=== PATIENT | female | born 1990 | race Caucasian/White ===

== ENCOUNTER 2019-07-31 07:23 | Emergency (ER) | payer SELFPAY ==
[2019-07-31] MEDS ORDERED: KETOROLAC 30 MG/ML INJ ONE (08:07)
[2019-07-31 08:20] LABS: Urine Bacteria 20-50 /HPF (<20); Urine RBC NONE SEEN /HPF (NONE SEEN)
[2019-07-31 08:21] LABS: Urine Culture Reflex Order NOT NEEDED
[2019-07-31 08:22] LABS: Absolute Lymphocytes (CBC) 2.4 K/uL (0.7-4.9); Basophils % 0.8 % (0-1.3); Lymphocytes % 25.8 % (15.3-44.8); MPV 9.8 fL (7.6-11.3); RBC Red Blood Cell Count 3.82 M/uL (3.86-4.86)
[2019-07-31 08:39] LABS: Urine Blood NEGATIVE (NEG); Urine Glucose NEGATIVE (NEG); Urine Protein NEGATIVE (NEG); Urine Specific Gravity 1.015 (1.005-1.030)
[2019-07-31 08:40] LABS: Albumin 3.6 g/dL (3.4-5.0); Bilirubin Direct 0.1 mg/dL (0-0.2); Bilirubin Total 0.6 mg/dL (0.2-1.0); Potassium 3.6 mmol/L (3.5-5.1); Protein, Total 7.2 g/dL (6.4-8.2)
--- NOTE | 2019-07-31 09:03 | EDPHYS ---
Physician Documentation [facility] Name: Perla De Jesus Age: 28 yrs Sex: Female : 1990 Arrival Date: 07/31/2019 Time: 07:26 Bed 14 Private MD: ED Physician Gabriel Ferguson HPI: 07/31 08:48 This 28 yrs old Female presents to ER via Ambulatory with complaints of gs Abdominal Pain, Back Pain. 08:48 The patient presents with abdominal pain. The patient presents with abdominal pain in gs the lower abdomen. Onset: The symptoms/episode began/occurred 4 day(s) ago. Associated signs and symptoms: Pertinent positives: nausea, Pertinent negatives: fever. The symptoms are described as crampy. Modifying factors: The symptoms are alleviated by nothing, the symptoms are aggravated by nothing. Severity of pain: At its worst the pain was moderate in the emergency department the pain has improved mildly. The patient has experienced similar episodes in the past, a few times. 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 - Social history:: Smoking status: Patient/guardian denies using tobacco. - Ebola Screening: : Patient denies exposure to infectious person Patient denies travel to an Ebola-affected area in the 21 days before illness onset. ROS: 08:48 All other systems are negative. gs Exam: 08:48 Head/Face: Normocephalic, atraumatic. Eyes: Pupils equal round and reactive to light, gs extra-ocular motions intact. Lids and lashes normal. Conjunctiva and sclera are non-icteric and not injected. Cornea within normal limits. Periorbital areas with no swelling, redness, or edema. ENT: Nares patent. No nasal discharge, no septal abnormalities noted. Tympanic membranes are normal and external auditory canals are clear. Oropharynx with no redness, swelling, or masses, exudates, or evidence of obstruction, uvula midline. Mucous membranes moist. Neck: Trachea midline, no thyromegaly or masses palpated, and no cervical lymphadenopathy. Supple, full range of motion without nuchal rigidity, or vertebral point tenderness. No Meningismus. Chest/axilla: Normal chest wall appearance and motion. Nontender with no deformity. No lesions are appreciated. Cardiovascular: Regular rate and rhythm with a normal S1 and S2. No gallops, murmurs, or rubs. Normal PMI, no JVD. No pulse deficits. Respiratory: Lungs have equal breath sounds bilaterally, clear to auscultation and percussion. No rales, rhonchi or wheezes noted. No increased work of breathing, no retractions or nasal flaring. Back: No spinal tenderness. No costovertebral tenderness. Full range of motion. Skin: Warm, dry with normal turgor. Normal color with no rashes, no lesions, and no evidence of cellulitis. MS/ Extremity: Pulses equal, no cyanosis. Neurovascular intact. Full, normal range of motion. Neuro: Awake and alert, GCS 15, oriented to person, place, time, and situation. Cranial nerves II-XII grossly intact. Motor strength 5/5 in all extremities. Sensory grossly intact. Cerebellar exam normal. Normal gait. 08:48 Constitutional: The patient appears alert, awake. 08:48 Abdomen/GI: Palpation: mild abdominal tenderness, in the umbilical area, right lower quadrant and left lower quadrant. Vital Signs: 07:40 BP 137 / 98; Pulse 60; Resp 14; Temp 97.8(TE); Pulse Ox 100% on R/A; Weight 77.11 kg; ss Height 5 ft. 3 in. (160.02 cm); Pain 6/10; 08:38 BP 131 / 96; Pulse 50; Resp 16; Pulse Ox 99% on R/A; Pain 4/10; rb1 09:18 BP 138 / 97; Pulse 55; Resp 15; Temp 98.1(O); Pulse Ox 99% on R/A; Pain 3/10; rb1 07:40 Body Mass Index 30.11 (77.11 kg, 160.02 cm) ss MDM: 07:52 Patient medically screened. gs 08:48 Differential diagnosis: non-specific abd pain, pancreatitis, urinary tract infection. gs Data reviewed: vital signs, nurses notes. Counseling: I had a detailed discussion with the patient and/or guardian regarding: the historical points, exam findings, and any diagnostic results supporting the discharge/admit diagnosis, the need for outpatient follow up. Response to treatment: the patient's symptoms have markedly improved after treatment, and as a result, I will discharge patient. 07/31 07:36 Order name: Urine Microscopic Only; Complete Time: 08:48 07/31 07:50 Order name: Urine Culture rb1 07/31 07:52 Order name: Basic Metabolic Panel; Complete Time: 08:48 07/31 07:52 Order name: CBC with Diff; Complete Time: 08:48 gs 07/31 07:52 Order name: Hepatic Function; Complete Time: 08:48 gs 07/31 07:52 Order name: Lipase; Complete Time: 08:48 07/31 07:36 Order name: Urine Test (obtain specimen); Complete Time: 07:50 gs 07/31 07:36 Order name: Urine Dipstick-Ancillary (obtain specimen); Complete Time: 07:50 07/31 07:52 Order name: IV Saline Lock; Complete Time: 08:15 07/31 07:52 Order name: Labs collected and sent; Complete Time: 08:16 gs 07/31 07:53 Order name: Urine Dipstick--Ancillary (enter results); Complete Time: 08:48 eb 07/31 07:53 Order name: Urine --Ancillary (enter results); Complete Time: 08:48 eb Administered Medications: 08:19 Drug: TORadol - Ketorolac 15 mg Route: IVP; Site: right antecubital; rb1 08:34 Follow up: Response: No adverse reaction; Pain is decreased rb1 Disposition: 07/31/19 09:02 Discharged to Home. Impression: Urinary tract infection, site not specified. - Condition is Stable. - Discharge Instructions: Urinary Tract Infection, Adult. - Prescriptions for Keflex 500 mg Oral Capsule - take 1 capsule by ORAL route every 12 hours for 10 days; 20 capsule. - Medication Reconciliation Form, Thank You Letter, Antibiotic Education, Prescription Opioid Use form. - Follow up: Private Physician; When: 2 - 3 days; Reason: Re-evaluation by your physician. Signatures: Dispatcher [facility] Arelis Phelan RN RN ss Barber, Rebecca, RN RN rb1 Gabriel Ferguson MD MD Corrections: (The following items were deleted from the chart) :20 09:02 07/31/2019 09:02 Discharged to Home. Impression: Urinary tract infection, site rb1 not specified. Condition is Stable. Forms are Medication Reconciliation Form, Thank You Letter, Antibiotic Education, Prescription Opioid Use. Follow up: Private Physician; When: 2 - 3 days; Reason: Re-evaluation by your physician. gs
--- NOTE | 2019-07-31 09:03 | ER ---
Nurse's Notes [facility] Name: Perla De Jesus Age: 28 yrs Sex: Female : 1990 Arrival Date: 07/31/2019 Time: 07:26 Bed 14 Private MD: Diagnosis: Urinary tract infection, site not specified Presentation: 07/31 07:41 Presenting complaint: Patient states: umbilical soreness x months, now lower abd pain ss and back pain with nausea x 4 days. Denies fever. Transition of care: patient was not received from another setting of care. Onset of symptoms is unknown. Risk Assessment: Do you want to hurt yourself or someone else? Patient reports no desire to harm self or others. Initial Sepsis Screen: Does the patient meet any 2 criteria? No. Patient's initial sepsis screen is negative. Does the patient have a suspected source of infection? No. Patient's initial sepsis screen is negative. Care prior to arrival: None. 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 - Social history:: Smoking status: Patient/guardian denies using tobacco. - Ebola Screening: : Patient denies exposure to infectious person Patient denies travel to an Ebola-affected area in the 21 days before illness onset. Screenin:30 Abuse screen: Denies threats or abuse. Nutritional screening: No deficits noted. rb1 Tuberculosis screening: No symptoms or risk factors identified. Fall Risk None identified. Assessment: 07:30 General: Appears in no apparent distress. comfortable, Behavior is calm, cooperative, rb1 Denies fever. Pain: Complains of pain in suprapubic area Pain currently is 5 out of 10 on a pain scale. Neuro: Level of Consciousness is awake, alert, obeys commands, Oriented to person, place, time, situation. Cardiovascular: Capillary refill < 3 seconds is brisk in bilateral fingers. Respiratory: Airway is patent Respiratory effort is even, unlabored, Respiratory pattern is regular, symmetrical. GI: Bowel sounds present X 4 quads. Abd is soft Reports nausea. : No signs and/or symptoms were reported regarding the genitourinary system. Derm: Skin is pink, warm \\T\\ dry. 08:30 Reassessment: Patient appears in no apparent distress at this time. Patient and/or rb1 family updated on plan of care and expected duration. Pain level reassessed. Patient is alert, oriented x 3, equal unlabored respirations, skin warm/dry/pink. 09:19 Reassessment: Patient appears in no apparent distress at this time. No changes from rb1 previously documented assessment. Vital Signs: 07:40 BP 137 / 98; Pulse 60; Resp 14; Temp 97.8(TE); Pulse Ox 100% on R/A; Weight 77.11 kg; ss Height 5 ft. 3 in. (160.02 cm); Pain 6/10; 08:38 BP 131 / 96; Pulse 50; Resp 16; Pulse Ox 99% on R/A; Pain 4/10; rb1 09:18 BP 138 / 97; Pulse 55; Resp 15; Temp 98.1(O); Pulse Ox 99% on R/A; Pain 3/10; rb1 07:40 Body Mass Index 30.11 (77.11 kg, 160.02 cm) ED Course: 07:26 Patient arrived in ED. as 07:30 Patient has correct armband on for positive identification. Bed in low position. Call rb1 light in reach. Pulse ox on. NIBP on. 07:33 Gabriel Ferguson MD is Attending Physician. gs 07:39 Arelis Wu, RN is Primary Nurse. ss 07:40 Gosia Catalan, RN is Primary Nurse. rb1 07:40 Arm band placed on right wrist. ss 07:42 Triage completed. ss 08:11 Initial lab(s) drawn, by me, sent to lab. Inserted saline lock: 20 gauge in right dh3 antecubital area, using aseptic technique. Blood collected. 09:19 No provider procedures requiring assistance completed. IV discontinued, intact, rb1 bleeding controlled, No redness/swelling at site. Pressure dressing applied. Administered Medications: 08:19 Drug: TORadol - Ketorolac 15 mg Route: IVP; Site: right antecubital; rb1 08:34 Follow up: Response: No adverse reaction; Pain is decreased rb1 Outcome: 09:02 Discharge ordered by . 09:19 Discharged to home ambulatory, with significant other. rb1 09:19 Condition: stable 09:19 Discharge instructions given to patient, Instructed on discharge instructions, follow up and referral plans. medication usage, Demonstrated understanding of instructions, follow-up care, medications, Prescriptions given X 1. 09:20 Patient left the ED. rb1 Signatures: Bertha Shabazz Shelby, RN RN Gosia Catalan RN RN [facility] Gabriel Ferguson MD MD
[2019-07-31 09:39] VITALS: O2SAT 99
[2019-07-31 09:41] VITALS: BP 138/97; TEMP 98.1
== END 2019-07-31 09:20 | disposition home or self-care (01) ==
LOC: ER 07:23
DX: N39.0 Urinary tract infection, site not specified (principal)
CPT/HCPCS: 36415; 80048; 80076; 81003; 81015; 81025; 83690; 85025; 87086; 87088; 96374; 99284

== ENCOUNTER 2020-12-06 19:34 | Emergency (ER) | payer BC, SELFPAY ==
--- OUTSIDE RECORDS SUMMARY | 2020-12-06 19:38 | XMS REPORT | Clinical Summary ---
:1990 Author Organization [facility] Address [address] [place] [address] Care Team Providers Name Role Phone Chata Primary Care Provider PcpMD Primary Care Provider Unavailable PcpMD Primary Care Provider Unavailable Allergies No Known Allergies Medications Medication Sig Dispensed Refills Start End Status Date Date dextroamphetamine-a TK 1 T PO BID 0 Active mphetamine FOR ADD 0 (ADDERALL) 20 mg Tab tablet traMADoL 100 mg Take 50 mg by 15 tablet 0 TabIndications: mouth every 6 0 020 pain, stent (six) hours as placement needed for Pain for up to 5 days. Max Daily Amount: 200 mg levoFLOXacin Take 1 tablet 5 tablet 0 Exp ired (LEVAQUIN) 500 MG (500 mg total) 0 020 tablet by mouth daily for 5 days. amoxicillin-clavula TK 1 T PO BID 0 Discontinued curtis (AUGMENTIN) 0 020 (Er ror) 500-125 mg per tablet fluconazole TK 1 T PO D 0 Discon tinued (DIFLUCAN) 100 MG 0 020 (E rror) tablet levoFLOXacin Take 1 tablet 7 tablet 0 Exp ired (LEVAQUIN) 500 MG (500 mg total) 0 020 tablet by mouth daily for 7 days. traMADoL (ULTRAM) Take 1 tablet 30 tablet 0 50 mg tablet (50 mg total) by 0 020 mouth every 6 (six) hours as needed for up to 10 days. Max Daily Amount: 200 mg docusate sodium Take 1 capsule 10 capsule 0 (COLACE) 100 MG (100 mg total) 0 020 capsule by mouth 2 (two) times daily for 10 days. traMADoL (ULTRAM) Take 1 tablet 15 tablet 0 50 mg tablet (50 mg total) by 0 020 mouth every 6 (six) hours as needed for Pain for up to 10 days. Max Daily Amount: 200 mg phenazopyridine Take 1 tablet 10 tablet 0 (PYRIDIUM) 200 MG (200 mg total) 0 020 tablet by mouth 3 (three) times daily as needed for Pain for up to 3 days. fluconazole Take 1 tablet 5 tablet 0 Expi red (DIFLUCAN) 200 MG (200 mg total) 0 020 tablet by mouth daily for 5 days. sulfamethoxazole-tr Take 1 tablet 14 tablet 0 Discontinued imethoprim (BACTRIM (160 mg of 0 020 (Reorder) DS) 800-160 mg per trimethoprim tablet total) by mouth 2 (two) times daily for 7 days. sulfamethoxazole-tr Take 1 tablet 14 tablet 0 Discontinued imethoprim (BACTRIM (160 mg of 0 020 (Reorder) DS) 800-160 mg per trimethoprim tablet total) by mouth 2 (two) times daily for 7 days. sulfamethoxazole-tr Take 1 tablet 14 tablet 0 imethoprim (BACTRIM (160 mg of 0 020 DS) 800-160 mg per trimethoprim tablet total) by mouth 2 (two) times daily for 7 days. Active Problems Problem Noted Date Retained ureteral stent 07/30/2020 Ureteral obstruction, right 03/14/2020 Ovarian mass, left 07/22/2016 Endometriosis 05/02/2016 Encounters Date Type Specialty Care Team Description 10/15/2020 Anesthesia Event Bijal Whitehead MD 10/15/2020 Surgery Mustapha Berrios CYSTOSCOPY,UR SILVIA Cortés MD PY 10/15/2020 Hospital Encounter Mustapha Berrios MD 10/15/2020 Travel 10/14/2020 Hospital Encounter Pre-Admission Testing 10/13/2020 Hospital Encounter Radiology Mustapha Berrios Obstruc tion of right ureter; MD Moo Ureteral strict ure; Acute cystitis without hematuria 10/06/2020 Outside Orders Central Scheduling Yash, Mustapha Obstr uction of right ureter (Primary Dx); MD Moo Ureteral strict ure; Acute cystitis without hematuria 07/30/2020 Anesthesia Event Prabhjot Jacob MD Narayan, Rakesh, MD 07/30/2020 Hospital Encounter Darci Pacheco MD 07/30/2020 Surgery Darci Pacheco CYSTOSCOPY,URE TERBROCK Geronimo MD PY W/ LASER LITHOTRIPSY 07/30/2020 Travel 07/29/2020 Hospital Encounter Pre-Admission Testing 07/29/2020 Travel 07/05/2020 Hospital Encounter Radiology Mustapha Berrios Obstruc tion of right MD Moo ureter 07/05/2020 Travel 07/02/2020 Outside Orders Central Scheduling Yash, Mustapha Obstr uction of right MD Moo ureter (Primary Dx) 06/25/2020 Hospital Encounter Pre-Admission Mustapha Berrios Endome triosis (Primary Dx); Testing MD Moo Ureteral obstru ction, right 06/25/2020 Hospital Encounter Radiology Mustapha Berrios Uretera l obstruction, right; MD Moo Stricture or ki nking of ureter 06/21/2020 Outside Orders Radiology Mustapha Berrios Ureteral ob struction, right (Primary Dx); MD Moo Stricture or ki nking of ureter 03/14/2020 Anesthesia Event Rula Michaels MD 03/14/2020 Surgery Darci Pacheco CYSTOSCOPY,INS ERTION MD Juanpablo URETERAL STENTS 03/14/2020 - Hospital Encounter General Internal Quin Alejandro etriosis; 03/15/2020 Medicine Brenda Patti, Endometrioma o f ovary; Ureteral obstruction, right; Chalo, Pelvic mass; MD Franki Hydrosalpinx; Tani Ascencio, Infertility, female, secondary 03/14/2020 Travel after 12/06/2019 Social History Tobacco Use Types Packs/Day Years Used Date Never Smoker Smokeless Tobacco: Never Used Alcohol Use Drinks/Week oz/Week Comments No Sex Assigned at Date Recorded Not on file Last Filed Vital Signs Vital Sign Reading Time Taken Comments Blood Pressure 115/61 10/15/2020 12:34 PM NUCLEAR MONITORING TECHNICIAN Pulse 56 10/15/2020 12:34 PM NUCLEAR MONITORING TECHNICIAN Temperature 36.1 C (97 F) 10/15/2020 12:34 PM NUCLEAR MONITORING TECHNICIAN Respiratory Rate 20 10/15/2020 12:34 PM NUCLEAR MONITORING TECHNICIAN Oxygen Saturation 96% 10/15/2020 1:45 PM NUCLEAR MONITORING TECHNICIAN Inhaled Oxygen Concentration - - Weight 68.8 kg (151 lb 11.2 oz) 10/15/2020 8:20 AM NUCLEAR MONITORING TECHNICIAN Height 160 cm (5' 2.99") 10/15/2020 8:20 AM NUCLEAR MONITORING TECHNICIAN Body Mass Index 26.88 10/15/2020 8:20 AM NUCLEAR MONITORING TECHNICIAN Plan of Treatment Date Type Specialty Care Team Description 12/16/2020 Hospital Encounter Amy Genao MD [address] [address] 12/16/2020 Surgery Amy Genao, LAPAROSCO PY,TOTAL MD HYSTERECTOMY [address] [facility] [address] [place], [place] [address] [phone] Health Maintenance Due Date Last Done Comments DTAP/TDAP/TD VACCINES (2 - Td) 12/03/2005 11/05/2005 HEPATITIS C SCREENING 2008 CERVICAL CANCER SCREENING PAP ONLY (Age 21-65) 2011 INFLUENZA VACCINE (#1) 2020 DEPRESSION SCREENING (12+) 11/05/2020 Implants Implanted Type Area Director Of Strategic Marketing Device Identifier Shelf Model / Expiration Serial / Date Lot Stent Uret Ult Teofilo [id number] - Sn/A IMPLANTS Right: [employer] [id number] 11/20/2021 [id number] / Implanted: Qty: 1 on 03/14/2020 by Darci Pacheco MD at [facility] Ureter SCI:UROLOGY/ARTIFICIAL LEATHER CALENDER OPERATOR N/A / ECOLOGY [id number] Procedures Procedure Name Priority Date/Time Associated Diagnosis Comme nts FL FLUORO Routine 10/15/2020 11:30 AM Results for this NON-SPECIFIC UP TO NUCLEAR MONITORING TECHNICIAN procedure are in 1 HOUR the results section. PROCEDURE W/ C-ARM 10/15/2020 10:03 AM Ureteral strict ure, NUCLEAR MONITORING TECHNICIAN right Special Needs (NO CYSTO ROOM, C-ARM) Check ed by Velasquez Hollins CYSTOSCOPY,URETEROSCOPY 10/15/2020 10:03 AM NUCLEAR MONITORING TECHNICIAN Ureter al stricture, right Special Needs (NO CYSTO ROOM, C-ARM) Check ed by Velasquez Hollins IR NEPHROSTOMY TUBE Routine 10/13/2020 3:05 Obstruction of ri ght Results for this CHANGE - RIGHT PM NUCLEAR MONITORING TECHNICIAN ureter procedure are in Ureteral strictu re the results Acute cystitis without secti on. hematuria CBC W/PLT COUNT & STAT 10/13/2020 11:10 Result s for this AUTO DIFFERENTIAL AM NUCLEAR MONITORING TECHNICIAN procedure are in the results section. BASIC METABOLIC STAT 10/13/2020 11:10 Results for this PANEL (7) AM NUCLEAR MONITORING TECHNICIAN procedure are i n the results section. CBC W/PLT COUNT & STAT 10/13/2020 11:10 Result s for this AUTO DIFFERENTIAL AM NUCLEAR MONITORING TECHNICIAN procedure are in the results section. APTT STAT 10/13/2020 11:10 Results for this AM NUCLEAR MONITORING TECHNICIAN procedure are i n the results section. PROTHROMBIN TIME/INR STAT 10/13/2020 11:10 Res ults for this AM NUCLEAR MONITORING TECHNICIAN procedure are i n the results section. SCREEN, STAT 10/13/2020 11:09 Result s for this URINE AM NUCLEAR MONITORING TECHNICIAN procedure are i n the results section. RHYTHM STRIP - SCAN 08/04/2020 9:50 AM CDT TRANSFUSION SERVICE 07/31/2020 6:04 REPORT - SCAN PM CDT XR CHEST 1 VIEW Routine 07/30/2020 5:12 Results for this PORTABLE/BEDSIDE PM CDT procedure a re in the results section. FL FLUORO STAT 07/30/2020 4:59 Results for this NON-SPECIFIC UP TO 1 PM CDT procedu re are in HOUR the results section. PROCEDURE W/ C-ARM 07/30/2020 1:[address], PM CDT unspecified late rality Retained uretera l stent Nephrolithiasis Case Notes 2 HRS PER EVELINE Special Needs (C-ARM, HOLMIUM LASER, FLEXI BLE URETERAL SCOPE, AND PRONE POSITION) Checked by Velasquez Hollins CYSTOSCOPY,RETROGRADES 07/30/2020 1:02 PM CDT O bstruction of ureter, unspecified laterality Retained uretera l stent Nephrolithiasis Case Notes 2 HRS PER EVELINE Special Needs (C-ARM, HOLMIUM LASER, FLEXI BLE URETERAL SCOPE, AND PRONE POSITION) Checked by Velasquez Hollins CYSTOSCOPY,REMOVAL URETERAL 07/30/2020 1:02 PM Obstru ction of ureter, STENTS CDT unspecified late rality Retained uretera l stent Nephrolithiasis Case Notes 2 HRS PER EVELINE Special Needs (C-ARM, HOLMIUM LASER, FLEXI BLE URETERAL SCOPE, AND PRONE POSITION) Checked by Velasquez Hollins NEPHROSTOLITHOTOMY,PERCUTANEOUS MINI 07/30/2020 1:02 Obstruction of ureter, (MINI PCNL) PM CDT unspecified late rality Retained uretera l stent Nephrolithiasis Case Notes 2 HRS PER EVELINE Special Needs (C-ARM, HOLMIUM LASER, FLEXI BLE URETERAL SCOPE, AND PRONE POSITION) Checked by Velasquez Hollins CYSTOSCOPY,URETEROSCOPY W/ LASER 07/30/2020 1:02 PM O bstruction of ureter, LITHOTRIPSY CDT unspecified late rality Retained uretera l stent Nephrolithiasis Case Notes 2 HRS PER EVELINE Special Needs (C-ARM, HOLMIUM LASER, FLEXI BLE URETERAL SCOPE, AND PRONE POSITION) Checked by Velasquez Hollins POCT , URINE Routine 07/30/2020 11:00 AM Results for this CDT procedure are i n the results section. TYPE AND SCREEN, Routine 07/30/2020 10:52 AM Resu lts for this AUTOMATED CDT procedure are i n the results section. IR NEPHROSTOMY TUBE Routine 07/05/2020 2:50 PM Obstruction of right Results for this CHANGE - RIGHT CDT ureter procedure are in the results section. SCREEN, Routine 07/05/2020 10:59 AM Res ults for this URINE CDT procedure are i n the results section. CBC (HEMOGRAM ONLY) Routine 07/05/2020 10:32 AM R esults for this CDT procedure are i n the results section. PROTHROMBIN TIME/INR Routine 07/05/2020 10:32 AM Results for this CDT procedure are i n the results section. HEMOGLOBIN Routine 06/25/2020 1:34 PM Results for this CDT procedure are i n the results section. SARS-COV2/RT-PCR Routine 06/25/2020 1:34 PM Resu lts for this ([facility] REF LAB[facility]) CDT procedure are in the results section. CT ABDOMEN/PELVIS Routine 06/25/2020 10:05 AM Ureteral Res ults for this WITH & WITHOUT IV CDT obstruction, r ight procedure are in CONTRAST Stricture or kinking the res ults of ureter section. CBC W/PLT COUNT & Routine 03/15/2020 4:04 AM Res ults for this AUTO DIFFERENTIAL CDT procedure are in the results section. BASIC METABOLIC PANEL Routine 03/15/2020 4:04 AM Results for this (7) CDT procedure are i n the results section. CBC W/PLT COUNT & Routine 03/15/2020 4:04 AM Res ults for this AUTO DIFFERENTIAL CDT procedure are in the results section. URINALYSIS W/ REFLEX Routine 03/14/2020 12:03 PM Results for this URINE CULTURE CDT procedure are in the results section. URINE CULTURE Routine 03/14/2020 12:03 PM Results for this CDT procedure are i n the results section. FL FLUORO Routine 03/14/2020 11:45 AM Results for this NON-SPECIFIC UP TO 1 CDT procedu re are in HOUR the results section. CYSTOSCOPY,INSERTION 03/14/2020 11:00 AM Right uretera l stone URETERAL STENTS CDT URINALYSIS W/ REFLEX Routine 03/14/2020 10:41 AM Results for this URINE CULTURE CDT procedure are in the results section. URINE CULTURE Routine 03/14/2020 10:41 AM Results for this CDT procedure are i n the results section. BLOOD CULTURE Routine 03/14/2020 10:02 AM Results for this CDT procedure are i n the results section. PROTHROMBIN TIME/INR Routine 03/14/2020 9:47 AM Results for this CDT procedure are i n the results section. BASIC METABOLIC PANEL Routine 03/14/2020 9:47 AM Results for this (7) CDT procedure are i n the results section. BLOOD CULTURE Routine 03/14/2020 9:47 AM Results for this CDT procedure are i n the results section. CBC W/PLT COUNT & Routine 03/14/2020 9:46 AM Res ults for this AUTO DIFFERENTIAL CDT procedure are in the results section. CBC W/PLT COUNT & Routine 03/14/2020 9:46 AM Res ults for this AUTO DIFFERENTIAL CDT procedure are in the results section. after 12/06/2019 Results FL fluoro non-specific up to 1 hour (10/15/2020 11:30 AM NUCLEAR MONITORING TECHNICIAN)Only the most recent of3 resultswithin the time period is included. Specimen Narrative Performed At Fluoroscopic unit utilized for a procedure performed i n the OR. No GE RIS interpretation was requested. Refer to the operative report for findings. Refer to PACS for patient radiation dose i nformation. Procedure Note Interface, External Ris In - 10/15/2020 3:30 PM NUCLEAR MONITORING TECHNICIAN Fluoroscopic unit utilized for a procedu re performed in the OR. No interpretation was requested. Refer to the operative r eport for findings. Refer to PACS for patient radiation dose information. Performing Organization Address City/State/Zipcode Phone Number GE RIS IR Nephrosotomy Tube Change Right (10/13/2020 3:05 PM NUCLEAR MONITORING TECHNICIAN)Only the most recent of2 resultswithin the time period is included. Specimen Narrative Performed At FINAL REPORT GE RIS PROCEDURE: Percutaneous nephrostomy cath eter exchange CLINICAL HISTORY: N13.5; N13.5; N30.00 BESSEMER CONVERTER BLOWER: Nirmal Martinze DO, JD ANESTHESIA: Local lidocaine DEVICE: 8.5 Ukrainian pigtail catheter DOSE INFORMATION - Ka,r: 5 mGy Estimated Blood Loss: <5 mL Samples: None. PROCEDURE: The risks, benefits, and alte rnatives to the procedure were discussed with the patient. All q uestions were answered and written informed consent was obtained. A universal timeout was performed prior to starting the procedur e. For the prevention of infection all elements of maximal steril e barrier technique, hand hygiene, skin preparation and sterile te chniques were followed. After local anesthesia with lidocaine th e catheter was exchanged over a wire in the usual fashion. Contrast co nfirmed appropriate location. The catheter secured to skin using a Sta tLock device. The patient tolerated procedure well wit hout immediate complication and was transported to the floor/recover y area in stable condition. IMPRESSION: Successful replacement of right percutan eous nephrostomy catheter. Signed: Nirmal Martinez MD Report Verified Date/Time: 10/13/2020 15:13:58 Reading Location: [facility] P048 Angio Body Reading Room Procedure Note Interface, External Ris In - 10/13/2020 3:17 PM NUCLEAR MONITORING TECHNICIAN FINAL REPORT PROCEDURE: Percutaneous nephrostomy cath eter exchange CLINICAL HISTORY: N13.5; N13.5; N30.00 BESSEMER CONVERTER BLOWER: Nirmal Martinez DO, ROBERT ANESTHESIA: Local lidocaine DEVICE: 8.5 Ukrainian pigtail catheter DOSE INFORMATION - Ka,r: 5 mGy Estimated Blood Loss: <5 mL Samples: None. PROCEDURE: The risks, benefits, and alte rnatives to the procedure were discussed with the patient. All qu estions were answered and written informed consent was obtained. A universal timeout was performed prior to starting the procedur e. For the prevention of infection all elements of maximal steril e barrier technique, hand hygiene, skin preparation and sterile te chniques were followed. After local anesthesia with lidocaine th e catheter was exchanged over a wire in the usual fashion. Contrast co nfirmed appropriate location. The catheter secured to skin using a Sta tLock device. The patient tolerated procedure well wit hout immediate complication and was transported to the floor/recover y area in stable condition. IMPRESSION: Successful replacement of right percutan eous nephrostomy catheter. Signed: Nirmal Martinez MD Report Verified Date/Time: 10/13/2020 1 5:13:58 Reading Location: [place] [address] Angio Body Reading Room Performing Organization Address City/State/Zipcode Phone Number GE RIS CBC with platelet count + automated diff (10/13/2020 11:10 AM NUCLEAR MONITORING TECHNICIAN)Only the most recent of3 resultswithin the time period is included. Pathologist Sig nature WBC 7.9 3.5 - 10.5 [facility] K/L [facility] RBC 4.71 3.93 - 5.22 [facility] M/L [facility] Hemoglobin 13.3 11.2 - 15.7 [facility] GM/DL [facility] Hematocrit 41.3 34.1 - 44.9 % [facility] MCV 87.7 79.4 - 94.8 fL [facility] MCH 28.2 25.6 - 32.2 pg [facility] MCHC 32.2 32.2 - 35.5 [facility] GM/DL [facility] RDW 14.5 (H) 11.7 - 14.4 % [facility] Platelets 274 150 - 450 K/CU [facility] MPV 10.5 9.4 - 12.3 fL [facility] nRBC 0 0 - 0 /100 WBC [facility] % Neutros 66 % [facility] % Lymphs 27 % [facility] % Monos 4 % [facility] % Eos 2 % [facility] % Baso 1 % [facility] # Neutros 5.18 1.56 - 6.13 [facility] # Lymphs 2.13 1.18 - 3.74 [facility] # Monos 0.32 0.24 - 0.36 [facility] # Eos 0.18 0.04 - 0.36 [facility] # Baso 0.05 0.01 - 0.08 [facility] Immature 0 0 - 1 % [facility] Granulocytes-Relative [facility] Specimen Blood Performing Organization Address City/State/Zipcode Phone Number [facility] [address] [place] [address] CENTER aPTT (10/13/2020 11:10 AM NUCLEAR MONITORING TECHNICIAN) Pathologist Sig nature PTT 29.3 22.5 - 36.0 seconds [facility] Specimen Blood Performing Organization Address City/[facility]/Zipcode Phone Number [facility] [address] [place] [address] CENTER Prothrombin time/INR (10/13/2020 11:10 AM NUCLEAR MONITORING TECHNICIAN)Only the most recent of3 results within the time period is included. Pathologist Sig nature Protime 13.5 11.9 - 14.2 seconds [facility] INR 1.06 <=5.90 [facility] Specimen Blood Narrative Performed At Effective 04/02/2019: PT Reference Range [facility] Change New: 11.9-14.2 Previous: 11.7-14.7 RECOMMENDED COUMADIN/WARFARIN INR THERAPY RANGES STANDARD DOSE: 2.0-3.0 Includes: PROPHYLAXIS for venous thrombosis, systemic embolization; TREATMENT for venous thrombosis and/or pulmonary embolus. HIGH RISK: Target INR is 2.5-3.5 for patients wiht mechanical heart valves. Performing Organization Address City/[facility] Cent[facility]ode Phone Number [facility] [address] [place] [address] CENTER Basic Metabolic Panel (10/13/2020 11:10 AM NUCLEAR MONITORING TECHNICIAN)Only the most recent of3 results within the time period is included. Sodium 137 136 - 145 meq/L [facility] Potassium 4.1 3.5 - 5.1 meq/L [facility] Chloride 104 98 - 107 meq/L [facility] CO2 23 22 - 29 meq/L [facility] BUN 13 7 - 21 mg/dL [facility] Creatinine 0.90 0.57 - 1.25 [facility] mg/dL [facility] Glucose 80 70 - 105 mg/dL [facility] Calcium 9.5 8.4 - 10.2 [facility] mg/dL [facility] EGFR 74Comment: ESTIMATED mL/min/1.[address] [facility] GFR IS NOT m [facility] ACCURATE [place] CREATININE CLEARANCE IN PREDICTING GLOMERULAR FILTRATION RATE. ESTIMATED GFR IS NOT APPLICABLE FOR DIALYSIS PATIENTS. Specimen Blood Narrative Performed At Clinical Research Nurse Coordinator ID - AMY C [facility] I[facility] CENTER Performing Organization Address City/State/Zipcode Phone Number [facility] [address] [place] [address] [place] Screen, urine (10/13/2020 11:09 AM NUCLEAR MONITORING TECHNICIAN)Only the most recent of2 resultswithin the time period is included. Pathologist Sig nature Preg Test, Ur Negative [facility] Specimen Urine Performing Organization Address City/State/Zipcode Phone Number [address] [address] [place] RHYTHM STRIP - SCAN (08/04/2020 9:50 AM CDT) Narrative Performed At This result has an attachment that is no t available. TRANSFUSION SERVICE REPORT - SCAN (07/31/2020 6:04 PM CDT) Narrative Performed At This result has an attachment that is no t available. XR chest 1 view portable / bedside (07/30/2020 5:12 PM CDT) Specimen Narrative Performed At FINAL REPORT GE RIS Exam: RAD, CHEST, 1 VIEW, NON DEPT Date: 07/30/2020 10:30 PM Indication: Postoperative Comparison: None FINDINGS: Lines/Tubes:Endotracheal tube terminates 4 cm above the radha. Lungs:The lungs are well inflated. No fo varsha consolidation or pulmonary edema. Pleura:No pleural effusion. No pneumotho rax. Heart/Mediastinum:The cardiomediastinal silhouette is normal in size and contour. Bones/Soft Tissues: No acute osseous inj ury. Abdomen: No free air below the diaphragm . IMPRESSION: No focal pneumonia or pulmonary edema. Signed: Carla Carmona MD Report Verified Date/Time: 07/30/2020 22:30:53 Reading Location: [address] Reading Room Electronically signed by: MD nancy VALADEZ n 07/30/2020 10:30 PM Procedure Note Interface, External Ris In - 07/30/2020 10:33 PM CDT FINAL REPORT Exam: RAD, CHEST, 1 VIEW, NON DEPT Date: 07/30/2020 10:30 PM Indication: Postoperative Comparison: None FINDINGS: Lines/Tubes:Endotracheal tube terminates 4 cm above the radha. Lungs:The lungs are well inflated. No fo varsha consolidation or pulmonary edema. Pleura:No pleural effusion. No pneumotho rax. Heart/Mediastinum:The cardiomediastinal silhouette is normal in size and contour. Bones/Soft Tissues: No acute osseous inj ury. Abdomen: No free air below the diaphragm . IMPRESSION: No focal pneumonia or pulmonary edema. Signed: Carla Carmona MD Report Verified Date/Time: 07/30/2020 2 2:30:53 Reading Location: [address] Reading Room Performing Organization Address City/State/Zipcode Phone Number GE RIS POCT , urine (07/30/2020 11:00 AM CDT) Pathologist Sig nature Test Urine, POC Negative Control line present?, POC Yes Background clear?, POC Yes UPT Cassette Lot #, POC [id number] UPT Cassette Expiration [id number] Date, POC Specimen Type and screen, automated (07/30/2020 10:52 AM CDT) Pathologist Sig nature ABO/RH AUTOMATED O POSITIVE [facility] Ab Scrn NEGATIVE [facility] Specimen Blood Performing Organization Address City/[facility]/Zipcode Phone Number [facility] [address] [place] [address] CBC (Hemogram only) (07/05/2020 10:32 AM CDT) Pathologist Sig nature WBC 7.8 3.5 - 10.5 K/L [facility] RBC 4.44 3.93 - 5.22 M/L [facility] Hemoglobin 12.4 11.2 - 15.7 GM/DL [facility] Hematocrit 39.1 34.1 - 44.9 % [facility] MCV 88.1 79.4 - 94.8 fL [facility] MCH 27.9 25.6 - 32.2 pg [facility] MCHC 31.7 (L) 32.2 - 35.5 GM/DL [facility] RDW 14.3 11.7 - 14.4 % [facility] Platelets 221 150 - 450 K/CU MM [facility] MPV 10.7 9.4 - 12.3 fL [facility] nRBC 0 0 - 0 /100 WBC [facility] Specimen Blood Performing Organization Address City/State/Zipcode Phone Number [facility] [address] [place] [address] CENTER SARS-CoV2/RT-PCR (Asymptomatic ONLY) (06/25/2020 1:34 PM CDT) SARS-COV2/RT-PCR Negative Not Detected, [facility] Negative, See [facility] external report CENTER for linked test SARS-COV-2 [facility] PERFORMING LAB [facility] Specimen Other - Nasopharyngeal wall structure (b andrew structure) Narrative Performed At Negative result for this test determines that [facility] SARS-CoV-2 RNA was not present in the specimen above the Limit of Detection (LOD). However, Negative results do not preclude SARS-CoV-2 infection and should not be used as the sole basis for treatment or patient management decisions. Negative results must be combined with clinical observations, patient history, and epidemiological information. A false negative result may occur if a specimen is improperly collected, transported or handled. A false negative result should be considered if patient's recent exposures or clinical presentation indicate that COVID-19 (SARS-CoV-2) is likely and diagnostic tests for other causes of illness are negative. Re-testing should be considered in cases of suspected false negatives. The limit of detection for this assay is 800 copies/mL. This SARS CoV-2 test is a real-time RT-PCR test intended for the qualitative detection of nucleic acid from SARS-CoV-2 in a nasopharyngeal swab specimen collected from individuals suspected of COVID-19 by their healthcare provider. This test has not been Food and Drug Administration (FDA) cleared or approved. This is a modified version of an approved Emergency Use Authorization (EUA) and is in the process of review by the FDA. Once authorized by the FDA, the issued EUA will be effective until the declaration that circumstances exist justifying the authorization of the emergency use of in vitro diagnostic tests for detection and/or diagnosis of COVID-19 is terminated under Section 564(b)(2) of the Act or the EUA is revoked under Section 564(g) of the Act. Fact Sheet for Healthcare Providers: https://www.[employer]/sites/default/files/pro duct/documents/Fact_Sheet_HC_Providers_Lyra_SA RS-CoV-2.pdf Fact Sheet for Healthcare Patients: https://www.[employer]/sites/default/files/pro duct/documents/Fact_Sheet_Patients_Lyra_SARS-C oV-2.pdf Performing Laboratory: [address] [address] Performing Organization Address [facility]/Zipcode Phone Number [address] [address] CENTER Hemoglobin (06/25/2020 1:34 PM CDT) Pathologist Sig nature Hemoglobin 12.9 11.2 - 15.7 GM/DL [facility] Specimen Blood - Entire left upper arm (body stru cture) Narrative Performed At Clinical Research Nurse Coordinator ID - [id number] [facility] Performing Organization Address [facility]/State/Zipcode Phone Number [address] abdomen/pelvis without & with IV contrast (06/25/2020 10:05 AM CDT) Specimen Narrative Performed At FINAL REPORT [employer] CT, ABDOMEN \\T\\ PELVIS, WITHOUT \\T\\ WITH IV CONTRAST HISTORY: ureteral obstruction, right COMPARISON: CT abdomen and pelvis 07/22 TECHNIQUE: CT of the abdomen and pelvis WITHOUT and WITH intravenous contrast and WITHOUT oral contrast, urog shane protocol. The examination was performed according to [facility] departmental dose-optimization program, which include s automated exposure control, adjustment of the mA and/or kV according to patient size and/or use of iterative reconstruction technique. FINDINGS: Lung bases: Unremarkable. Liver: Focal hypodensity along the falci form ligament, likely focal fat deposition, was present on 07/22/2016 . Gallbladder and bile ducts: Unremarkable . Spleen: Unremarkable. Pancreas: Couple cystic foci measuring u p to 5 mm in the pancreatic head. No main pancreatic ductal dilation . Adrenals: Unremarkable Kidneys and ureters: Severe right hydrou reteronephrosis. Minimally delayed right nephrogram. Diffuse right urothelial thickening and hyperenhancement. Right ureteral stent i n appropriate position, proximal end in the renal pelvis and dis darrel end in the urinary bladder. Nonopacification of the right u reter, however no definite intraluminal ureteral mass identified bu t there is undulating contour of the wall of the distal right ureter. Distal left ureter is nonopacified. No left hydronephrosis Bowel: Small bowel loops in the left lat eral colic gutter, however bowel loops had a normal configuration o f prior and this is felt to be incidental as there is no evidence of obstruction. Bladder: Irregularly thick-walled. Small amount of intraluminal bladder gas.. Reproductive organs: Superior to the [place],, there is a solid and cystic lesion which has diminished in si ze since 07/22/2016, now 75 x 39 mm, was 114 x 76 mm Lymph nodes: No lymphadenopathy. Peritoneum: Surgical clips along the rig ht paracolic gutter and a small subcentimeter soft tissue density (axial image 57 on delayed phase) which has diminished in conspicui ty compared with 07/22/2016. Vessels: Unremarkable. Abdominal wall: Soft tissue density at t he umbilicus, nonspecific and unchanged. Mild postsurgical changes in the inferior abdominal wall. Bones: Unremarkable. No new or suspiciou s osseous lesions IMPRESSION: 1.Complete nonopacification of the right ureter limiting its evaluation. Persistent severe right hydr oureteronephrosis, likely related to right ureteral stent malfunct ion. 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 5.Hypodensity in the liver along the fal ciform ligament, likely focal fat deposition, attention on follow-up 6.Additional incidentals as above. Signed: Prabhjot Little MD Report Verified Date/Time: 06/25/2020 16:39:00 Reading Location: [facility] Reading Room - [place] [address] Procedure Note Interface, External Ris In - 06/25/2020 4:41 PM CDT FINAL REPORT CT, ABDOMEN \\T\\ PELVIS, WITHOUT \\T\\ WITH IV CONTRAST HISTORY: ureteral obstruction, right COMPARISON: CT abdomen and pelvis 2015 TECHNIQUE: CT of the abdomen and pelvis WITHOUT and WITH intravenous contrast and WITHOUT oral contrast, urog shane protocol. The examination was performed according to [facility] departmental dose-optimization program, which include s automated exposure control, adjustment of the mA and/or kV according to patient size and/or use of iterative reconstruction technique. FINDINGS: Lung bases: Unremarkable. Liver: Focal hypodensity along the falci form ligament, likely focal fat deposition, was present on 07/22/2016 . Gallbladder and bile ducts: Unremarkable . Spleen: Unremarkable. Pancreas: Couple cystic foci measuring u p to 5 mm in the pancreatic head. No main pancreatic ductal dilation . Adrenals: Unremarkable Kidneys and ureters: Severe right hydrou reteronephrosis. Minimally delayed right nephrogram. Diffuse right urothelial thickening and hyperenhancement. Right ureteral stent i n appropriate position, proximal end in the renal pelvis and dis darrel end in the urinary bladder. Nonopacification of the right u reter, however no definite intraluminal ureteral mass identified bu t there is undulating contour of the wall of the distal right ureter. Distal left ureter is nonopacified. No left hydronephrosis Bowel: Small bowel loops in the left lat eral colic gutter, however bowel loops had a normal configuration o f prior and this is felt to be incidental as there is no evidence of obstruction. Bladder: Irregularly thick-walled. Small amount of intraluminal bladder gas.. Reproductive organs: Superior to the [place],, there is a solid and cystic lesion which has diminished in si ze since 07/22/2016, now 75 x 39 mm, was 114 x 76 mm Lymph nodes: No lymphadenopathy. Peritoneum: Surgical clips along the rig ht paracolic gutter and a small subcentimeter soft tissue density (axial image 57 on delayed phase) which has diminished in conspicui ty compared with 07/22/2016. Vessels: Unremarkable. Abdominal wall: Soft tissue density at t he umbilicus, nonspecific and unchanged. Mild postsurgical changes in the inferior abdominal wall. Bones: Unremarkable. No new or suspiciou s osseous lesions IMPRESSION: 1.Complete nonopacification of the right ureter limiting its evaluation. Persistent severe right hydr oureteronephrosis, likely related to right ureteral stent malfunct ion. 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 5.Hypodensity in the liver along the fal ciform ligament, likely focal fat deposition, attention on follow-up 6.Additional incidentals as above. Signed: Prabhjot Little MD Report Verified Date/Time: 06/25/2020 1 6:39:00 Reading Location: [facility] Reading Room - [place] [address] Performing Organization Address City/State/Zipcode Phone Number GE [facility] Urinalysis w/Microscopic + Reflex to Culture (03/14/2020 12:03 PM CDT)Only the most recent of2 resultswithin the time period is included. Color, UA Yellow [facility] Clarity, UA Cloudy [facility] Specific [place], 1.016 1.001 - 1.035 [facility] pH, UA 7.0 5.0 - 8.0 [facility] Protein, UA 300 mg/dL (A) Negative [facility] Glucose, UA Negative Negative [facility] Ketones, UA Negative Negative [facility] Bilirubin, UA Negative Negative [facility] Blood, UA Moderate (A) Negative [facility] Nitrite, UA Negative Negative [facility] Leukocytes, UA Large (A) Negative [facility] Urobilinogen, UA 0.2 0.2 - 1.0 mg/dL [facility] RBC, UA 73 /HPF [facility] WBC, UA 4,302 /HPF [facility] Specimen Source [facility] Specimen Urine - Urine, Surgically Obtained Narrative Performed At Clinical Research Nurse Coordinator ID - [auto] [facility] Clinical Research Nurse Coordinator ID - tech Performing Organization Address [facility] Cent[facility] Phone Number [address] [address] CENTER Urine culture (03/14/2020 12:03 PM CDT)Only the most recent of2 resultswithin the time period is included. Pathologist Sig nature Result No growth [facility] Specimen Urine - Urine, Surgically Obtained Performing Organization Address [facility]/Zipcode Phone Number [address] [address] [place] Blood culture (03/14/2020 10:02 AM CDT)Only the most recent of2 resultswithin the time period is included. Pathologist Sig nature Result No growth in 5 days [facility] Specimen Blood - Entire right upper arm (body str ucture) Performing Organization Address [facility]/Zipcode Phone Number [address] [address] CENTER after 12/06/2019 Insurance Payer Benefit Plan / Subscriber ID Effective Dates Phone Addre ss Type Group BLUE BCBS PPO POS [id number] 2020-Presen [phone] [id number] PPO CROSS/BLUE EPO CHOICE t 2 [facility] [id number] Advance Directives For more information, please contact: [phone] Code Status Date Activated Date Inactivated Comments Full Code 07/05/2020 10:19 AM 07/06/2020 4:28 AM This code status was determined by: Patient Full Code 03/14/2020 7:01 AM 03/15/2020 6:25 PM This code status was determined by: Patient Full Code 07/23/2016 3:39 PM 07/25/2016 5:47 PM This code status was determined by: Patient Full Code 07/22/2016 5:21 PM 07/23/2016 3:39 PM This code status was determined by: Patient Full Code 05/02/2016 8:08 PM 05/03/2016 7:23 PM This code status was determined by: Patient
--- OUTSIDE RECORDS SUMMARY | 2020-12-06 19:38 | XMS REPORT | Continuity of Care Document ---
:1990 Author Organization [facility] t Address [address] [place] [address] Care Team Providers Name Role Phone Sharpless Primary Care Physician Paco Sim MD Attending Clinician Unavailable Luis Felipe Whitehead MD Attending Clinician PACO SIM Attending Clinician Unavailable Juanpablo Pacheoc MD Attending Clinician Anabel Jacob MD Attending Clinician Sidney BUCKLEY Attending Clinician Birgit BUCKLEY Attending Clinician Nitin Pacheco MD Attending Clinician PATTI ALEJANDRO Attending Clinician Unavailable Patti Alejandro MD Attending Clinician Chalo BUCKLEY Attending Clinician Merchant BUCKLEY Attending Clinician Elise Michaels MD Attending Clinician Rudy BUCKLEY Attending Clinician PATTI ALEAJNDRO Admitting Clinician Unavailable Payers Payer Name Policy Type Policy Effective Date Expiration Date Sour ce Number BLUE CROSS/BLUE [id number] 2020 [facility] [employer]IELDBC[facility] PPO 00:00:00 - Medical POS EPO Center [id number] 2019-Present [phone] [address], [place] [address]MMP Problems Condition Condition Condition Status Onset Resolution Last Treating Co mments Source Name Details Category Date Date Treatment Clinician Date Retained Retained Disease [facility] - stent stent 00:00: Medical [address] [place] [address] Ureteral Ureteral Disease [facility] obstruct[facility] obstructio 5-10 [facility] - n, right n, right 00:00: Medica l [place] Ovarian Ovarian Disease Active [facility] mass, left mass, left 9- [place] kes - 00:00: Medical 00 [place] Endometrio Endometrio Disease Active [facility] sis sis 6-28 [facility] - 00:00: Medical 00 [place] Family Family Problem Active [facility] history of history of [facility] kes - stroke stroke [facility] Adult BMI Adult BMI Problem Active [facility] 29.0-29.9 29.0-29.9 Luke s - kg/sq m kg/sq m [facility] Mixed Mixed Problem Active [facility] hyperlipid hyperlipid [facility] kes - emia emia [facility] Fatigue, Fatigue, Problem Active [facility] unspecifie unspecifie [place] [facility] - d type d type [facility] Endometrio Endometrio Problem Active [facility] sis sis [facility] - [facility] HTN HTN Problem Active [facility] (hypertens (hypertens [facility] kes - ion), ion), [facility]oria benign benign l [facility] Clin[facility] Allergies, Adverse Reactions, Alerts This patient has no known allergies or adverse reactions. Social History Social Habit Start Date Stop Date Quantity Comments Source [facility] Tobacco use and 2020-10-15 2020-10-15 Never used [facility] St [place] kes - exposure 00:00:00 00:00:00 [facility] Alcohol intake 2020-10-15 2020-10-15 [facility] non-drinker of Medical Ce nter alcohol (finding) Smoking Status Start Date Stop Date Source Never smoker [facility] Medications Ordered Filled Start Stop Current Ordering Indication Dosage Frequency Signature Comments Components Source Medication Medication Date Date Medication? Clinician (SIG) Name Name traMADoL 2019-11- No 50mg Take [address] [facility] [address] (ULTRAM) 50 12-16 tablet (50 L ukes - mg tablet 00:00: 23:59 mg total) Me dical 00 :00 by mouth Center every 6 (six) hours as needed for Pain for up to 10 days. Max Daily Amount: 200 mg sulfamethox 2019-11- No 160mg{t Q.5D Take [address] azole-trime 12-1618 rimetho tablet Colette kes - thoprim 00:00: 23:59 prim} (160 mg of Me dical (BACTRIM 00 :00 trimethopr Cente r DS) 800-160 im total) mg per by mouth 2 tablet (two) times daily for 7 days. fluconazole 2019-11- No 200mg QD Take [address] (DIFLUCAN) 12-1616 tablet [facility] - 200 MG 00:00: 23:59 (200 mg Medical tablet 00 :00 total) by Center mouth daily for 5 days. phenazopyri 2019-11- No 200mg Take [address] dine 12-16-14 tablet [facility] - (PYRIDIUM) 00:00: 23:59 (200 mg Med ical 200 MG 00 :00 total) by Center tablet mouth 3 (three) times daily as needed for Pain for up to 3 days. sulfamethox 2019-11- No 160mg{t Q.5D Take [address] azole-trime -11 rimetho tablet [place] kes - thoprim 00:00: 00:00 prim} (160 mg of Me dical (BACTRIM 00 :00 trimethopr Cente r DS) 800-160 im total) mg per by mouth 2 tablet (two) times daily for 7 days. sulfamethox 2019-11- No 160mg{t Q.5D Take [address] azole-trime 2- 1211 rimetho tablet Colette kes - thoprim 00:00: 00:00 prim} (160 mg of Me dical (BACTRIM 00 :00 trimethopr Cente r DS) 800-160 im total) mg per by mouth 2 tablet (two) times daily for 7 days. traMADoL 2019- No 50mg Take [address] [facility] [facility] (ULTRAM) 50 07-30 tablet (50 L ukes - mg tablet 00:00: 23:59 mg total) Me dical 00 :00 by mouth Center every 6 (six) hours as needed for up to 10 days. Max Daily Amount: 200 mg docusate 2019- No 100mg Q.5D Take 1 [facility] sodium 07-30 capsule [facility] - (COLACE) 00:00: 23:59 (100 mg Medic al 100 MG 00 :00 total) by Center capsule mouth 2 (two) times daily for 10 days. levoFLOXaci 2019- No 500mg QD Take [address] n 07-30 tablet [facility]ukes - (LEVAQUIN) 00:00: 23:59 (500 mg Med ical 500 MG 00 :00 total) by Center tablet mouth daily for 7 days. amoxicillin 2019- No TK [address] -clavulanat 07-01 BID [facility] - e 00:00: 00:00 Medical (AUGMENTIN) 00 :00 Center 500-125 mg per tablet dextroamphe Yes TK [address] [facility] tamine-amph 06-30 BID FOR [facility]ukes - etamine 00:00: ADD Medical (ADDERALL) 00 Center 20 mg Tab tablet fluconazole 2019- No TK [address] (DIFLUCAN) 06-25 D [facility] - 100 MG 00:00: 00:00 Medical tablet 00 :00 Center traMADoL 2019- No pain 50mg Take [address] 100 mg Tab 03-15 by mouth Luke s - 00:00: 23:59 every 6 Medical 00 :00 (six) Center hours as needed for Pain for up to 5 days. Max Daily Amount: 200 mg levoFLOXaci 2019- No 500mg QD Take [address] n 03-15 tablet [facility] - (LEVAQUIN) 00:00: 23:59 (500 mg Med ical 500 MG 00 :00 total) by Center tablet mouth daily for 5 days. Lisinopril/ Lisinopril/ 2018- Yes Micky marvin tab [facility] HCTZ HCTZ 4-24 Regan [facility] - 00:00: [facility] 00 l [facility]pati ent Clinics Vital Signs Vital Name Observation Time Observation Value Comments Source Oxygen saturation in 2020-10-15 13:45:00 96 /min [facility] - Arterial blood by Medical Ce nter Pulse oximetry Systolic blood 2020-10-15 12:34:00 115 mm[Hg] [facility] Diastolic blood 2020-10-15 12:34:00 61 mm[Hg] [facility] Heart rate 2020-10-15 12:34:00 56 /min [facility] Body temperature 2020-10-15 12:34:00 36.11 [facility] Respiratory rate 2020-10-15 12:34:00 20 /min [facility] Body height 2020-10-15 08:20:00 160 cm [facility] Body weight 2020-10-15 08:20:00 68.811 kg [facility] BMI 2020-10-15 08:20:00 26.88 kg/m2 [facility] Procedures Procedure Date / Time Performed Performing Clinician Sourc e [place] FLUORO NON-SPECIFIC 2020-10-15 11:30:00 Mustapha Sim [facility] - UP TO 1 HOUR [facility] CYSTOSCOPY,URETEROSCOPY 2020-10-15 10:03:00 Mustapha Sim [facility] PROCEDURE W/ C-ARM 2020-10-15 10:03:00 Mustapha Sim [facility] IR NEPHROSTOMY TUBE 2020-10-13 15:05:00 Mustapha Sim [facility] I [facility] PROTHROMBIN TIME/INR 2020-10-13 11:10:[address] [facility] APTT 2020-10-13 11:10:[address] [facility] BASIC METABOLIC PANEL 2020-10-13 11:10:00 Ana Laura Garcia [facility] - (7) [facility] CBC W/PLT COUNT & AUTO 2020-10-13 11:10:00 Ana Laura Garcia [facility] DIFFERENTIAL [facility] SCREEN, URINE 2020-10-13 11:09:[address] [facility] RHYTHM STRIP - SCAN 2020-08-04 09:50:44 Provider, Ramsey [facility] TRANSFUSION SERVICE 2020-07-31 18:04:13 Provider, Ramsey [facility] REPORT - SCAN Scanning [facility] XR CHEST 1 VIEW 2020-07-30 17:12:00 Darci Pacheco [facility] PORTABLE/BEDSIDE [facility] FL FLUORO NON-SPECIFIC 2020-07-30 16:59:00 Darci Pacheco [facility] UP TO 1 HOUR [facility] CYSTOSCOPY,URETEROSCOPY 2020-07-30 13:02:00 Darci Pacheco [facility] W/ LASER LITHOTRIPSY [facility] ter NEPHROSTOLITHOTOMY,PERCU 2020-07-30 13:02:00 Darci Pacheco [facility] TANEOUS MINI (MINI PCNL) [facility] CYSTOSCOPY,REMOVAL 2020-07-30 13:02:00 Darci Pacheco [facility] URETERAL STENTS [facility] CYSTOSCOPY,RETROGRADES 2020-07-30 13:02:00 Darci Pacheco [facility] PROCEDURE W/ C-ARM 2020-07-30 13:02:00 Darci Pacheco [facility] POCT , URINE 2020-07-30 11:00:00 Riley Sanchez [facility] TYPE AND SCREEN, 2020-07-30 10:52:00 Miguel Angel Acevedo [facility] es AUTOMATED [facility] IR NEPHROSTOMY TUBE 2020-07-05 14:50:00 Mustapha Sim [facility] CHANGE - RIGHT [facility] SCREEN, URINE 2020-07-05 10:59:00 Gabbie [facility] PROTHROMBIN TIME/INR 2020-07-05 10:32:00 Gabbie [facility] CBC (HEMOGRAM ONLY) 2020-07-05 10:32:00 Joseph Cartwright [facility] SARS-COV2/RT-PCR ([facility] & 2020-06-25 13:34:00 Mustapha Sim Sund er [facility] - REF LABS) [facility] HEMOGLOBIN 2020-06-25 13:34:00 Camilo Farmer [facility] CT ABDOMEN/PELVIS WITH & 2020-06-25 10:05:00 YashMustapha Sund er [facility] - WITHOUT IV CONTRAST Medical Cent er BASIC METABOLIC PANEL 2020-03-15 04:04:00 [facility] (7) [facility] CBC W/PLT COUNT & AUTO 2020-03-15 04:04:00 Franki Isabel [facility] S [facility] URINALYSIS W/ REFLEX 2020-03-14 12:03:[address] [facility] URINE CULTURE [facility] URINE CULTURE 2020-03-14 12:03:00 Darci Pacheco [facility] FL FLUORO NON-SPECIFIC 2020-03-14 11:45:00 Darci Pacheco [facility] UP TO 1 HOUR [facility] CYSTOSCOPY,INSERTION 2020-03-14 11:00:[address] [facility] URETERAL STENTS [facility] URINE CULTURE 2020-03-14 10:41:00 Chalo Kaiser [facility] URINALYSIS W/ REFLEX 2020-03-14 10:41:00 Chalo [facility] URINE CULTURE [facility] BLOOD CULTURE 2020-03-14 10:02:00 Chalo Kaiser [facility] BLOOD CULTURE 2020-03-14 09:47:00 Chalo Kaiser [facility] BASIC METABOLIC PANEL 2020-03-14 09:47:00 Chalo [facility] () [facility] PROTHROMBIN TIME/INR 2020-03-14 09:47:00 Chalo Kaiser [facility] CBC W/PLT COUNT & AUTO 2020-03-14 09:46:00 [facility] Plan of Care Planned Activity Planned Date Details Comments Source Future Scheduled Test 2020-11-[address] [facility] - 00:00:00 (12+) [code = [facility] DEPRESSION SCREENING (12+)] Future Scheduled Test 2020-07-06 IN[address]ZA VACC[address] C [facility] - 00:00:00 (#1) [code = Medical Center INFLUENZA VACCINE (#1)] Future Scheduled Test 2011 [facility] - [facility] malignant neoplasm Medical C enter of cervix (procedure) [code = 444769015] Future Scheduled Test [address] [facility] - 00:00:00 SCREENING [code = Medical Ce nter HEPATITIS C SCREENING] Future Scheduled Test 2005-12-03 DTAP/TDAP/TD [facility] - 00:00:00 VACCINES (2 - Td) Medical Ce nter [code = DTAP/TDAP/TD VACCINES (2 - Td)] Future Appointment 2020-12-16 Amy Genao MD, [address] [facility] - 07:30:00 [address]; [address], [place] [address] Future Appointment 2020-12-16 Amy Genao MD, [address] [facility] - 07:30:00 Main; [address], [place] [address] Encounters Start End Encounter Admission Attending Care Care Encounter Source Date/Time Date/Time Type Type Clinicians Facility Department ID 2020-06-22 2020-06-22 Office Amy Genao [facility] [id number] 12:54:53 15:09:02 Visit Anurag [id number] 2020-06-18 2020-06-18 Office Amy Genao [facility] [id number] 09:16:28 10:16:28 Visit Anurag [id number] [id number] 2020-06-09 2020-06-09 Office [facility] [id number] 15:57:09 16:39:49 Visit Darci Taveras AMBULATOR [id number] Y [id number] [id number] 2020-03-14 2020-03-14 Emergency [facility] [id number] 00:35:14 05:09:00 Suleiman Mendoza [id number] [place] [id number] [place] [id number] 2018-02-26 2018-02-26 Outpatient Mari Coleman [id number] [facility] [address] 16:18:00 16:18:00 [facility] 2018-02-21 2018-02-21 Outpatient Mari Coleman [id number] [facility] [address] 11:00:00 11:00:00 [facility] ent [facility] Results Test Description Test Time Test Comments Results Result Sour e Comments FL, FLUORO, 2020-10-05 Reason for NON-SPECIFIC, UP 1 exam:->uretera TO 1 HOUR 11:30:00 l strict[facility] 1990 Sex: F *Fluoroscopic unit utilized for a procedure performed in the OR. No interpretation was requested. Refer to the operative report for findings. Refer to PACS for patient radiation dose information. FL fluoro 2020-10-05 Interface, External [facility] non-specific up 1 Ris In - 10/15/2020 - Medical to 1 hour 11:30:00 3:30 PM Center CSTFluoroscopic unit utilized for a procedure performed in the OR. No interpretation was requested. Refer to the operative report for findings. Refer to PACS for patient radiation dose information. ANG, NEPHROSTOMY Reason for TUBE CHANGE, 9 Exam:->N13.5; RIGHT 15:13:00 N13.5; N30.00 [facility] 1990 Sex: F *FINAL REPORT PROCEDURE: Percutaneous nephrostomy catheter exchange CLINICAL HISTORY: N13.5; N13.5; N30.00 ACCOUNTS CLERK: Nirmal Martinez DO, ROBERT ANESTHESIA: Local lidocaine DEVICE: 8.5 [place]or[place] pigtail catheter DOSE INFORMATION - Ka,r: 5 mGy Estimated Blood Loss: <5 mL Samples: None. PROCEDURE: The risks, benefits, and alternatives to the procedure were discussed with the patient. All questions were answered and written informed consent was obtained. A universal timeout was performed prior to starting the procedure. For the prevention of infection all elements of maximal sterile barrier technique, hand hygiene, skin preparation and sterile techniques were followed. After local anesthesia with lidocaine the catheter was exchanged over a wire in the usual fashion. Contrast confirmed appropriate location. The catheter secured to skin using a StatLock device. The patient tolerated procedure well without immediate complication and was transported to the floor/recovery area in stable condition. IMPRESSION: Successful replacement of right percutaneous nephrostomy catheter. Signed: Nirmal Martinez MDReport Verified Date/Time: 10/13/2020 15:13:58 Reading Location: [place] [address] Angio Body Reading Room Nephrosotomy 0 Interface, External [facility] Tube Change Right 9 Ris In - 10/13/2020 - Medical 15:13:00 3:17 PM CSTFINAL Center REPORT PROCEDURE: Percutaneous nephrostomy catheter exchange CLINICAL HISTORY: N13.5; N13.5; N30.00 ACCOUNTS CLERK: Nirmal Martinez DO, ROBERT ANESTHESIA: Local lidocaine DEVICE: 8.5 Comoran pigtail catheter DOSE INFORMATION - Ka,r: 5 mGy Estimated Blood Loss: <5 mL Samples: None. PROCEDURE: The risks, benefits, and alternatives to the procedure were discussed with the patient. All questions were answered and written informed consent was obtained. A universal timeout was performed prior to starting the procedure. For the prevention of infection all elements of maximal sterile barrier technique, hand hygiene, skin preparation and sterile techniques were followed. After local anesthesia with lidocaine the catheter was exchanged over a wire in the usual fashion. Contrast confirmed appropriate location. The catheter secured to skin using a StatLock device. The patient tolerated procedure well without immediate complication and was transported to the floor/recovery area in stable condition. IMPRESSION: Successful replacement of right percutaneous nephrostomy catheter. Signed: Nirmal Martinez MDReport Verified Date/Time: 10/13/2020 15:13:58 Reading Location: [place] [address] Angio Body Reading Room Basic Metabolic Panel 2020-10-13 11:57:00 Test Item Value Reference Range Interpretation Comme nts Sodium (test code = 137 meq/L 505-242 8185-2) Potassium (test code = 4.1 meq/L 3.5-5.1 2823-3) Chloride (test code = 104 meq/L 98-107 2075-0) CO2 (test code = 23 meq/L 22-29 2028-9) BUN (test code = 13 mg/dL 7-21 3094-0) Creatinine (test code = 0.90 mg/dL 0.57-1.25 2160-0) Glucose (test code = 80 mg/dL 70-105 2345-7) Calcium (test code = 9.5 mg/dL 8.4-10.2 47739-4) EGFR (test code = 74 mL/min/1.73 [place] [address]-3) ACCURATE CRE ATININE CLEARANCE IN TN EDICTING GLOMERULAR FILT RATION RATE. ESTIMATED GFR IS NOT APPLICABLE FOR DIALYSIS PATIEN TSSuzanne VITALE (test code = IAM) Spray Machine Operator ID - AMY Fleming [facility] MET[facility]OLIC [id number] 11:57:00 Test Item Value Reference Range Interpretation Comments SODIUM (BEAKER) 137 meq/L 136-145 (test code = 381) POTASSIUM (BEAKER) 4.1 meq/L 3.5-5.1 (test code = 379) CHLORIDE (BEAKER) 104 meq/L 98-107 (test code = 382) CO2 (BEAKER) (test 23 meq/L 22-29 code = 355) BLOOD UREA NITROGEN 13 mg/dL 7-21 (BEAKER) (test code = 354) CREATININE (BEAKER) 0.90 mg/dL 0.57-1.25 (test code = 358) GLUCOSE RANDOM 80 mg/dL 70-105 (BEAKER) (test code = 652) CALCIUM (BEAKER) 9.5 mg/dL 8.4-10.2 (test code = 697) EGFR (BEAKER) (test 74 mL/min/1.73 ESTIMA OLIVERIO GFR IS code = 1092) sq m NOT ACCURATE CREATININE CLEARANCE IN PREDICTING GLOMERULAR FILTRATION RATE . ESTIMATED GFR I S NOT APPLICABLE FOR DIALYSIS PATIJOSE WALKER. Spray Machine Operator ID - AMY [id number] 11:51:00 Test Item Value Reference Range Interpretation Comments PTT (test code = 82803-3) 29.3 22.5- 36.0 seconds Lab Interpretation (test code = Normal 09096-0) [facility] Test Item Value Reference Range Interpretation Comments PARTIAL THROMBOPLASTIN TIME 29.3 seconds 22.5-36.0 (BEAKER) (test code = 760) Prothrombin time/[id number] 11:50:00 Test Item Value Reference Range Interpretation Comments Protime (test code = 13.5 11.9- 14.2 5902-2) seconds INR (test code = 1.06 <=5.90 6301-6) IAM (test code = IAM) Effective 04/02/2019: PT Reference Range ChangeNew: 11.9-14.2 Previous: 11.7-14.7 RECOMMENDED COUMADIN/WARFARIN INR THERAPY RANGESSTANDARD DOSE: 2.0-3.0 Includes: PROPHYLAXIS for venous thrombosis, systemic embolization; TREATMENT for venous thrombosis and/or pulmonary embolus.HIGH RISK: Target INR is 2.5-3.5 for patients wiht mechanical heart valves. Lab Interpretation Normal (test code = 89406-2) [facility] Center[facility] TIME/[id number] 11:50:00 Test Item Value Reference Range Interpretation Comments PROTIME (BEAKER) (test code = 13.5 seconds 11.9-14.2 759) INR (BEAKER) (test code = 370) 1.06 <=5.90 Effective 04/02/2019: PT Reference Range ChangeNew: 11.9-14.2 Previous: 11.7- 14.7RECOMMENDED COUMADIN/WARFARIN INR THERAPY RANGESSTANDARD DOSE: 2.0-3.0 Includes: PROPHYLAXIS for venous thrombosis, systemic embolization; TREATMENT for venous thrombosis and/or pulmonary embolus.HIGH RISK: Target INR is2.5-3.5 for patients wiht mechanical heart valves. Screen, [id number] 11:39:00 Test Item Value Reference Range Interpretation Comments Preg Test, Ur (test code = 2112-1) Negative [facility] CenterPREGNANCY SCREEN, [id number] 11:39:00 Test Item Value Reference Range Interpretation Comments TEST URINE (BEAKER) (test Negative code = 583) CBC with platelet count + automated [id number] 11:29:00 Test Item Value Reference Range Interpretation Comments WBC (test code = 6690-2) 7.9 3.5- 10.5 K/L RBC (test code = 789-8) 4.71 3.93- 5.22 M/L MCHC (test code = 786-4) 32.2 32.2- 35.5 GM/DL Hematocrit (test code = 4544-3) 41.3 % 34.1-44.9 MCV (test code = 787-2) 87.7 fL 79.4-94.8 MCH (test code = 785-6) 28.2 pg 25.6-32.2 RDW (test code = 788-0) 14.5 % 11.7-14.4 H Platelets (test code = 777-3) 274 150- 450 K/CU MM MPV (test code = 85924-9) 10.5 fL 9.4-12.3 nRBC (test code = 413) 0 0- 0 /100 WBC % Neutros (test code = 429) 66 % % Lymphs (test code = 430) 27 % % Monos (test code = 431) 4 % % Eos (test code = 432) 2 % % Baso (test code = 437) 1 % # Neutros (test code = 670) 5.18 1.56- 6.13 K/L # Lymphs (test code = 414) 2.13 1.18- 3.74 K/L # Monos (test code = 415) 0.32 0.24- 0.36 K/L # Eos (test code = 416) 0.18 0.04- 0.36 K/L # Baso (test code = 417) 0.05 0.01- 0.08 K/L Immature Granulocytes-Relative 0 % 0-1 (test code = 2801) Lab Interpretation (test code = Abnormal 65297-8) [facility] W/PLT COUNT & AUTO [id number] 11:29:00 Test Item Value Reference Range Interpretation Comments WHITE BLOOD CELL COUNT (BEAKER) 7.9 K/ L 3.5-10.5 (test code = 775) RED BLOOD CELL COUNT (BEAKER) 4.71 M/ L 3.93-5.22 (test code = 761) HEMOGLOBIN (BEAKER) (test code = 13.3 GM/DL 11.2-15.7 410) HEMATOCRIT (BEAKER) (test code = 41.3 % 34.1-44.9 411) MEAN CORPUSCULAR VOLUME (BEAKER) 87.7 fL 79.4-94.8 (test code = 753) MEAN CORPUSCULAR HEMOGLOBIN 28.2 pg 25.6-32.2 (BEAKER) (test code = 751) MEAN CORPUSCULAR HEMOGLOBIN CONC 32.2 GM/DL 32.2-35.5 (BEAKER) (test code = 752) RED CELL DISTRIBUTION WIDTH 14.5 % 11.7-14.4 H (BEAKER) (test code = 412) PLATELET COUNT (BEAKER) (test 274 K/CU MM 150-450 code = 756) MEAN PLATELET VOLUME (BEAKER) 10.5 fL 9.4-12.3 (test code = 754) NUCLEATED RED BLOOD CELLS 0 /100 WBC 0-0 (BEAKER) (test code = 413) NEUTROPHILS RELATIVE PERCENT 66 % (BEAKER) (test code = 429) LYMPHOCYTES RELATIVE PERCENT 27 % (BEAKER) (test code = 430) MONOCYTES RELATIVE PERCENT 4 % (BEAKER) (test code = 431) EOSINOPHILS RELATIVE PERCENT 2 % (BEAKER) (test code = 432) BASOPHILS RELATIVE PERCENT 1 % (BEAKER) (test code = 437) NEUTROPHILS ABSOLUTE COUNT 5.18 K/ L 1.56-6.13 (BEAKER) (test code = 670) LYMPHOCYTES ABSOLUTE COUNT 2.13 K/ L 1.18-3.74 (BEAKER) (test code = 414) MONOCYTES ABSOLUTE COUNT (BEAKER) 0.32 K/ L 0.24-0.36 (test code = 415) EOSINOPHILS ABSOLUTE COUNT 0.18 K/ L 0.04-0.36 (BEAKER) (test code = 416) BASOPHILS ABSOLUTE COUNT (BEAKER) 0.05 K/ L 0.01-0.08 (test code = 417) IMMATURE GRANULOCYTES-RELATIVE 0 % 0-1 PERCENT (BEAKER) (test code = 2801) RAD, CHEST, 1 VIEW, NON [id number] 22:30:00Reason for exam:->Post PCLShould this be performed at the bedside?->YesFINAL REPORT Exam: RAD, CHEST, 1 VIEW, NON DEPTDate: 07/30/2020 10:30 PM Indication: Postoperative Comparison: None FINDINGS: Lines/Tubes:Endotracheal tube terminates 4 cm above the radha. Lungs:The lungs are well inflated. No focal consolidation or pulmonary edema. Pleura:No pleural effusion. No pneumothorax. Heart/Mediastinum:The cardiomediastinal silhouette is normal in sizeand contour. Bones/Soft Tissues: No acute osseous injury. Abdomen: No free air below the diaphragm.IMPRESSION:No focal pneumonia or pulmonary edema. Signed: Mary Carmonaeport Verified Date/Time: 07/30/2020 22:30:53 Reading Location: [facility] C0[facility] Transitional Reading Room XR chest 1 view portable / [id number] 22:30:00 Interface, External Ris In - 07/30/2020 10:33 PM CDTFINAL REPORT Exam: RAD, CHEST, 1 VIEW, NON DEPTDate: 07/30/2020 10:30 PM Indication: Postoperative Comparison: None FINDINGS: Lines/Tubes:Endotracheal tube terminates 4 cm above the radha. Lungs:The lungs are well inflated. No focal consolidation or pulmonary edema. Pleura:No pleural effusion. No pneumothorax. Heart/Mediastinum:The cardiomediastinal silhouette is normal in size and contour. Bones/Soft Tissues: No acute osseous injury. Abdomen: No free air below the diaphragm. IMPRESSION:No focal pneumonia or pulmonary edema. Signed: Mary Carmona MDReport Verified Date/Time: 07/30/2020 22:30:53 Reading Location: [address] Transitional Reading Room [facility] CenterFL, FLUORO, NON-SPECIFIC, UP TO 1 [id number] 17:58:06Reason for exam:->PCLFluoroscopic unit utilized for a procedure performed in the OR. No interpretation was requested. Refer to the operative report for findings. Refer to PACS for patient radiation dose information.Type and screen, [id number] 11:45:00 Test Item Value Reference Range Interpretation Comments ABO/RH AUTOMATED (BEAKER) (test O POSITIVE code = 2260) Ab Scrn (test code = 890-4) NEGATIVE [facility] , [id number] 11:00:00 Test Item Value Reference Range Interpretation Comments Test Urine, POC (test Negative code = 4434892) Control line present?, POC (test Yes code = 2694906) Background clear?, POC (test code = Yes 9245758) UPT Cassette Lot #, POC (test code 40876 = 9985069) UPT Cassette Expiration Date, POC [id number] (test code = 6476074) [facility] CenterANG, NEPHROSTOMY TUBE CHANGE, [id number] 17:37:00Reason for Exam:->N13.5FINAL REPORT Nephrostomy catheter placement, right, 07/05/2020. Clinical History: Right hydronephrosis. Modality: Fluoroscopy and sonography. Tank Terminal Gauger: Gabbie. Customer Retention Specialist: Pantera. Sedation: Versed 1 mg and fentanyl 50 mcg was given intravenously for conscious sedation. Vital signs were monitored throughout the procedure by a nurse, and remained stable. Physician intra-service time was 30 minutes. Estimated Blood Loss: Less than 5 cc. Specimen: None. FluoroTime: 2.1 min. Dose (Ka,r): 7.6 mGy. Technique: Informed written consent was obtained. Discussion of risks, benefits, and alternatives were made with the patient. The patient expressed understanding and agreed to proceed. All elements maximal sterile barrier technique was utilized for this procedure, including utilization of sterile scrub solution for skin prep, a large sterile sheet tocover the areas of the patient that were not prepped, and hand hygiene, mask, head covering, and sterile gown for performing radiologist and scrub technologist. Local anesthesia was achieved with 1% lidocaine, the right lower pole calyx was visualized with ultrasound. Using ultrasound guidance, a 21-gauge Chiba needle was advanced into the calyx. Contrast injection confirmed placement within the calyx. A 0.018 inch wire was advanced through the needle a curled within the pelvis. The Accustick sheath was advanced over the wire into the renal pelvis. A Perry wire was curled within the renal pelvis. After a small skin incision was made, the soft tissue tract was dilated with 7 and 9 Comoran dilators. A 8.5 Com[place]an APDL catheter was advanced over the wire until the catheter tip was within the renal pelvis. The wire was then removed, and the pigtail of the catheter was locked. The catheter was thensecured onto the skin with 2-0 silk. The patient tolerated the procedure well, without immediate comp lications. The patient's vital signs remained stable throughout the procedure. Patient disposition: The patient was discharged from the department in stable condition. Impression:Successful and uncomplicated right nephrostomy catheter placement with conscious sedation. Signed: Joseph Cartwright MDReport Verified Date/Time: 07/05/2020 17:37:13 Reading Location: [facility] B1 P048 Angio Body Reading Room EN, [id number] 11:16:00 Test Item Value Reference Range Interpretation Comments TEST URINE (BEAKER) (test Negative code = 583) PROTHROMBIN TIME/[id number] 11:13:00 Test Item Value Reference Range Interpretation Comments PROTIME (BEAKER) (test code = 13.5 seconds 11.9-14.2 759) INR (BEAKER) (test code = 370) 1.06 <=5.90 Effective 04/02/2019: PT Reference Range ChangeNew: 11.9-14.2 Previous: 11.7- 14.7RECOMMENDED COUMADIN/WARFARIN INR THERAPY RANGESSTANDARD DOSE: 2.0-3.0 Includes: PROPHYLAXIS for venous thrombosis, systemic embolization; TREATMENT for venous thrombosis and/or pulmonary embolus.HIGH RISK: Target INR is2.5-3.5 for patients wiht mechanical heart valves.CBC (Hemogram only)2020-07-05 11:03:00 Test Item Value Reference Range Interpretation Comments WBC (test code = 6690-2) 7.8 3.5- 10.5 K/L RBC (test code = 789-8) 4.44 3.93- 5.22 M/L MCHC (test code = 786-4) 31.7 32.2- 35.5 GM/DL L Hematocrit (test code = 4544-3) 39.1 % 34.1-44.9 MCV (test code = 787-2) 88.1 fL 79.4-94.8 MCH (test code = 785-6) 27.9 pg 25.6-32.2 RDW (test code = 788-0) 14.3 % 11.7-14.4 Platelets (test code = 777-3) 221 150- 450 K/CU MM MPV (test code = 77477-7) 10.7 fL 9.4-12.3 nRBC (test code = 413) 0 0- 0 /100 WBC Lab Interpretation (test code = Abnormal 15570-7) [facility] ([facility]MO[facility] ONLY)2020-07-05 11:03:00 Test Item Value Reference Range Interpretation Comments WHITE BLOOD CELL COUNT (BEAKER) 7.8 K/ L 3.5-10.5 (test code = 775) RED BLOOD CELL COUNT (BEAKER) 4.44 M/ L 3.93-5.22 (test code = 761) HEMOGLOBIN (BEAKER) (test code = 12.4 GM/DL 11.2-15.7 410) HEMATOCRIT (BEAKER) (test code = 39.1 % 34.1-44.9 411) MEAN CORPUSCULAR VOLUME (BEAKER) 88.1 fL 79.4-94.8 (test code = 753) MEAN CORPUSCULAR HEMOGLOBIN 27.9 pg 25.6-32.2 (BEAKER) (test code = 751) MEAN CORPUSCULAR HEMOGLOBIN CONC 31.7 GM/DL 32.2-35.5 L (BEAKER) (test code = 752) RED CELL DISTRIBUTION WIDTH 14.3 % 11.7-14.4 (BEAKER) (test code = 412) PLATELET COUNT (BEAKER) (test 221 K/CU MM 150-450 code = 756) MEAN PLATELET VOLUME (BEAKER) 10.7 fL 9.4-12.3 (test code = 754) NUCLEATED RED BLOOD CELLS 0 /100 WBC 0-0 (BEAKER) (test code = 413) SARS-CoV2/RT-PCR (Asymptomatic ONLY)2020-06-26 19:28:00 Test Item Value Reference Range Interpretation Comments SARS-COV2/RT-PCR Negative Not Detected, (test code = Negative, See 45845-7) external report for linked test SARS-COV-2 [facility] (test code = 72033-5) IAM (test code = Negative result for this IAM) test determines that SARS-CoV-2 RNA was not present in the [...] of the Act. Fact Sheet for Healthcare Providers:https://www.[employer]/sites/default/f jairo/product/documents/F act_Sheet_HC_Providers_L pey_VWRL-NoM-4.pdf Fact Sheet for Healthcare Patients:https://www.[employer]/sites/default/fi les/product/documents/Fa ct_Sheet_Patients_Lyra_S ARS-CoV-2.pdf Performing Laboratory:[facility] [place] [address] [facility] ([facility])2020-06-26 19:28:00 Test Item Value Reference Range Interpretation Comments SARS-COV2/RT-PCR (test Negative Not Detected, Negative, code = 1951405) See external report for linked test SARS-COV-2 PERFORMING LAB [facility] (test code = 0901135) Negative result for this test determines that SARS-CoV-2 RNA was not present in the specimen above the Limit of Detection (LOD). However, Negative results do not preclude SARS-CoV-2 infection and should not be used as the sole basis for treatment or patient management decisions. Negative results mustbe combined with clinical observations, patient history, and epidemiological information. A false negative result may occur if a specimen is improperly collected, transported or handled. A false negative result should be considered if patient's recent exposures or clinical presentation indicate that COVID-19 (SARS-CoV-2) is likely and diagnostic tests for other causes of illness are negative. Re-testing should be considered in cases of suspected false negatives.The limit of detection for this assay is 800 copies/mL.This SARS CoV-2 test is a real-time RT-PCR test intended for the qualitative detection of nucleic acid from SARS-CoV-2 in a nasopharyngeal swab specimen collected from individuals susp ected of COVID-19 by their healthcare provider.This test has not been Food and Drug [...] is revoked under Section 564(g) of the Act.Fact Sheet for Healthcare Providers:https://www.[employer]/sites/default/files/product/documents/Fact_Shee z_NM_Tfxlbvsuz_Nuke_FXVH-JuP-0.pdfFact Sheet for Healthcare Patients:https://www.[employer]/sites/default/files/product/ documents/Bpxi_Gyiuz_Ntvevdhe_Jyoc_XAZL-YxQ-6.pdfPerforming Laboratory:[place] [address], [place] [address]BW, [id number] 16:39:00Unlisted Reason for Exam - Click Yes and Enter Reason Below->Yes n13.5 Unlisted Reason for Exam->N13.5 Please specify:-> N13.5FINAL REPORT CT, ABDOMEN \T\ PELVIS, WITHOUT \T\ WITH IV CONTRAST HISTORY: ureteral obstruction, right COMPARISON: CT abdomen and pelvis 07/22/2016 TECHNIQUE: CT of the abdomen and pelvis WITHOUT and WITH intravenous contrast and WITHOUT oral contrast, urogram protocol. The examination was performed according to the departmental dose-optimization program, which includes automated exposure control, adjustment of the mA and/or kV according to patient size and/or use of iterative reconstruction technique. FINDINGS: Lung bases: Unremarkable.Liver: Focal hypodensity along the falciform ligament, likely focal fat deposition, was present on 07/22/2016.Gallbladder and bile ducts : Unremarkable.Spleen: Unremarkable.Pancreas: Couple cystic foci measuring up to 5 mm in the pancreatic head. No main pancreatic ductal dilation.Adrenals: UnremarkableKidneys and ureters: Severe right hydroureteronephrosis. Minimally delayed right nephrogram. Diffuse right urothelial thickening and hyp erenhancement. Right ureteral stent in appropriate position, proximal end in the renal pelvis and distal end in the urinary bladder. Nonopacification of the right ureter, however no definite intraluminal ureteral mass identified but there is undulating contour of the wall of the distal right ureter. Distal left ureter is nonopacified. No left hydronephrosisBowel: Small bowel loops in the left lateralcolic gutter, however bowel loops had a normal configuration of prior and this is felt to be incidental as there is no evidence of obstruction.Bladder: Irregularly thick-walled. Small amount of intraluminal bladder gas..Reproductive organs: Superior to the uterus,, there is a solid and cystic lesion which has diminished in size since 07/22/2016, now 75 x 39 mm, was 114 x 76 mmLymph nodes: No lymphadenopathy.Peritoneum: Surgical clips along the right paracolic gutter and a small subcentimeter soft tissue density (axial image 57 on delayed phase) which has diminished in conspicuity compared with 07/22/2016.Vessels: Unremarkable.Abdominal wall: Soft tissue density at the umbilicus, nonspecific and unchanged. Mild postsurgical changes in the inferior abdominal wall.Bones: Unremarkable. No new or suspicious osseous lesions IMPRESSION: 1.Complete nonopacification of the right ureter limiting its evaluation. 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 Signed: Prabhjot Little MDReport Verified Date/Time: 06/25/2020 16:39:00 Reading Location: [facility] Diagnostic Imaging Reading Room - [place] [address] abdomen/pelvis without & with IV [id number] 16:39:00Interface, External Ris In - 06/25/2020 4:[address], ABDOMEN \T\ PELVIS, WITHOUT \T\ WITH IV CONTRAST HISTORY: ureteral obstruction, right COMPARISON: CT abdomenand pelvis 07/22/2016 TECHNIQUE: CT of the abdomen and pelvis WITHOUT and WITH intravenous contrast and WITHOUT oral contrast, urogram protocol. The examination was performed according to the departmental dose-optimization program, which includes automated exposure control, adjustment of the mA and/orkV according to patient size and/or use of iterative reconstruction technique. FINDINGS: Lung bases: Unremarkable.Liver: Focal hypodensity along the falciform ligament, likely focal fat deposition, was present on 07/22/2016.Gallbladder and bile ducts: Unremarkable.Spleen: Unremarkable.Pancreas: Couple cystic foci measuring up to 5 mm in the pancreatic head. No main pancreatic ductal dilation.Adrenals: UnremarkableKidneys and ureters: Severe right hydroureteronephrosis. Minimally delayed right nephrogram. Diffuse right urothelial thickening and hyperenhancement. Right ureteral stent in appropriate position, proximal end in the renal pelvis and distal end in the urinary bladder. Nonopacificationof the right ureter, however no definite intraluminal ureteral mass identified but there is undulating contour of the wall of the distal right ureter. Distal left ureter is nonopacified. No left hydronephrosisBowel: Small bowel loops in the left lateral colic gutter, however bowel loops had a normal configuration of prior and this is felt to be incidental as there is no evidence of obstruction.Bladder: Irregularly thick- walled. Small amount of intraluminal bladder gas..Reproductive organs: Superior to the uterus,, there is a solid and cystic lesion which has diminished in size since 07/22/2016, now 75 x 39 mm, was 114 x 76 mmLymph nodes: No lymphadenopathy.Peritoneum: Surgical clips along the rightparacolic gutter and a small subcentimeter soft tissue density (axial image 57 on delayed phase) which has diminished in conspicuity compared with 07/22/2016.Vessels: Unremarkable.Abdominal wall: Soft tissue density at the umbilicus, nonspecific and unchanged. Mild postsurgical changes in the inferior abdominal wall.Bones: Unremarkable. No new or suspicious osseous lesions IMPRESSION: 1.Complete nonopa cification of the right ureter limiting its evaluation. 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 Signed: Prabhjot Little Verified Date/Time: 06/25/2020 16:39:00 Reading Location: [facility] Diagnostic Imaging Reading Room - [place] [address] [facility] CenterHemoglobin2020-08-[facility] 16:24:00 Test Item Value Reference Range Interpretation Comments Hemoglobin (test code = 12.9 11.2- 15.7 GM/DL 786-4) IAM (test code = IAM) Spray Machine Operator ID - [id number] Lab Interpretation (test Normal code = 89331-7) [facility] CenterHEMOGLOBIN2020-08-21 16:24:00 Test Item Value Reference Range Interpretation Comments HEMOGLOBIN (BEAKER) (test code = 12.9 GM/DL 11.2-15.7 410) Spray Machine Operator ID - [id number] 11:00:00 Test Item Value Reference Range Interpretation Comments Result (test code = No growth in 5 days 6463-4) [facility] CenterBLOOD [id number] 11:00:00 Test Item Value Reference Range Interpretation Comments CULTURE (BEAKER) (test No growth in 5 days code = 1095) BLOOD [id number] 11:00:00 Test Item Value Reference Range Interpretation Comments CULTURE (BEAKER) (test No growth in 5 days code = 1095) Urine [id number] 10:04:00 Test Item Value Reference Range Interpretation Comments Result (test code = 6463-4) No growth [facility] W/PLT COUNT & AUTO [id number] 05:14:00 Test Item Value Reference Range Interpretation Comments WHITE BLOOD CELL COUNT (BEAKER) 14.1 K/ L 3.5-10.5 H (test code = 775) RED BLOOD CELL COUNT (BEAKER) 3.91 M/ L 3.93-5.22 L (test code = 761) HEMOGLOBIN (BEAKER) (test code = 11.1 GM/DL 11.2-15.7 L 410) HEMATOCRIT (BEAKER) (test code = 34.7 % 34.1-44.9 411) MEAN CORPUSCULAR VOLUME (BEAKER) 88.7 fL 79.4-94.8 (test code = 753) MEAN CORPUSCULAR HEMOGLOBIN 28.4 pg 25.6-32.2 (BEAKER) (test code = 751) MEAN CORPUSCULAR HEMOGLOBIN CONC 32.0 GM/DL 32.2-35.5 L (BEAKER) (test code = 752) RED CELL DISTRIBUTION WIDTH 13.0 % 11.7-14.4 (BEAKER) (test code = 412) PLATELET COUNT (BEAKER) (test 217 K/CU MM 150-450 code = 756) MEAN PLATELET VOLUME (BEAKER) 11.2 fL 9.4-12.3 (test code = 754) NUCLEATED RED BLOOD CELLS 0 /100 WBC 0-0 (BEAKER) (test code = 413) NEUTROPHILS RELATIVE PERCENT 89 % (BEAKER) (test code = 429) LYMPHOCYTES RELATIVE PERCENT 9 % (BEAKER) (test code = 430) MONOCYTES RELATIVE PERCENT 2 % (BEAKER) (test code = 431) EOSINOPHILS RELATIVE PERCENT 0 % (BEAKER) (test code = 432) BASOPHILS RELATIVE PERCENT 0 % (BEAKER) (test code = 437) NEUTROPHILS ABSOLUTE COUNT 12.49 K/ L 1.56-6.13 H (BEAKER) (test code = 670) LYMPHOCYTES ABSOLUTE COUNT 1.21 K/ L 1.18-3.74 (BEAKER) (test code = 414) MONOCYTES ABSOLUTE COUNT (BEAKER) 0.33 K/ L 0.24-0.36 (test code = 415) EOSINOPHILS ABSOLUTE COUNT 0.00 K/ L 0.04-0.36 L (BEAKER) (test code = 416) BASOPHILS ABSOLUTE COUNT (BEAKER) 0.01 K/ L 0.01-0.08 (test code = 417) IMMATURE GRANULOCYTES-RELATIVE 1 % 0-1 PERCENT (BEAKER) (test code = 2801) BASIC METABOLIC [id number] 05:11:00 Test Item Value Reference Range Interpretation Comments SODIUM (BEAKER) 136 meq/L 136-145 (test code = 381) POTASSIUM (BEAKER) 4.3 meq/L 3.5-5.1 (test code = 379) CHLORIDE (BEAKER) 108 meq/L 98-107 H (test code = 382) CO2 (BEAKER) (test 23 meq/L 22-29 code = 355) BLOOD UREA NITROGEN 13 mg/dL 7-21 (BEAKER) (test code = 354) CREATININE (BEAKER) 1.07 mg/dL 0.57-1.25 (test code = 358) GLUCOSE RANDOM 154 mg/dL 70-105 H (BEAKER) (test code = 652) CALCIUM (BEAKER) 8.9 mg/dL 8.4-10.2 (test code = 697) EGFR (BEAKER) (test 61 mL/min/1.73 ESTIMA OLIVERIO GFR IS code = 1092) sq m NOT ACCURATE CREATININE CLEARANCE IN PREDICTING GLOMERULAR FILTRATION RATE . ESTIMATED GFR I S NOT APPLICABLE FOR DIALYSIS PATIEN TS. Spray Machine Operator ID - YON MFL, FLUORO, NON-SPECIFIC, UP TO 1 [id number] 20:23:00 Reason for exam:->Ureter stoneFINAL REPORT FL, FLUORO, NON-SPECIFIC, UP TO 1 HOUR Intraoperative fluoroscopy films performed by the referring physician. A fluoroscopic unit was utilized for a procedure performed in the operating room. No interpretation was requested. Please refer to the operative report regarding findings. Please refer to PACS for patient radiation dose information. Signed: Inocencio DriscollMDReport Verified Date/Time: 03/14/2020 20:23:57 Urinalysis w/Microscopic + Reflex to [id number] 12:32:00 Test Item Value Reference Range Interpretation Comments Color, UA (test code = Yellow 5778-6) Clarity, UA (test code = Cloudy 5767-9) Specific [place], UA (test 1.016 1.001-1.035 code = 5811-5) pH, UA (test code = 7.0 5.0-8.0 5803-2) Protein, UA (test code = 300 mg/dL Negative A 19810-1) Glucose, UA (test code = Negative Negative 365) Ketones, UA (test code = Negative Negative 2514-8) Bilirubin, UA (test code = Negative Negative 29668-4) Blood, UA (test code = Moderate Negative A 43546-3) Nitrite, UA (test code = Negative Negative 5802-4) Leukocytes, UA (test code Large Negative A = 5799-2) Urobilinogen, UA (test 0.2 mg/dL 0.2-1 code = 08296-2) RBC, UA (test code = 73 /HPF 19472-2) WBC, UA (test code = 4302 /HPF 5821-4) Specimen Source (test code = 2795) IAM (test code = IAM) Spray Machine Operator ID - [auto]Spray Machine Operator ID - tech Lab Interpretation (test Abnormal code = 45665-9) [facility]/ REFLEX URINE [id number] 12:32:00 Test Item Value Reference Range Interpretation Comments COLOR (BEAKER) (test code = 470) Yellow CLARITY (BEAKER) (test code = 469) Cloudy SPECIFIC GRAVITY UA (BEAKER) (test 1.016 1.001-1.035 code = 468) PH UA (BEAKER) (test code = 467) 7.0 5.0-8.0 PROTEIN UA (BEAKER) (test code = 300 mg/dL Negative A 464) GLUCOSE UA (BEAKER) (test code = Negative Negative 365) KETONES UA (BEAKER) (test code = Negative Negative 371) BILIRUBIN UA (BEAKER) (test code = Negative Negative 462) BLOOD UA (BEAKER) (test code = 461) Moderate Negative A NITRITE UA (BEAKER) (test code = Negative Negative 465) LEUKOCYTE ESTERASE UA (BEAKER) Large Negative A (test code = 466) UROBILINOGEN UA (BEAKER) (test code 0.2 mg/dL 0.2-1.0 = 463) RBC UA (BEAKER) (test code = 519) 73 /HPF WBC UA (BEAKER) (test code = 520) 4302 /HPF SOURCE(BEAKER) (test code = 2797) Spray Machine Operator ID - [auto]Spray Machine Operator ID - techURINALYSIS W/ REFLEX URINE CULTURE 2020-03-14 11:13:00 Test Item Value Reference Range Interpretation Comments COLOR (BEAKER) (test code = 470) Yellow CLARITY (BEAKER) (test code = 469) Cloudy SPECIFIC GRAVITY UA (BEAKER) (test 1.019 1.001-1.035 code = 468) PH UA (BEAKER) (test code = 467) 6.0 5.0-8.0 PROTEIN UA (BEAKER) (test code = 300 mg/dL Negative A 464) GLUCOSE UA (BEAKER) (test code = Negative Negative 365) KETONES UA (BEAKER) (test code = Trace Negative A 371) BILIRUBIN UA (BEAKER) (test code = Negative Negative 462) BLOOD UA (BEAKER) (test code = 461) Large Negative A NITRITE UA (BEAKER) (test code = Negative Negative 465) LEUKOCYTE ESTERASE UA (BEAKER) Large Negative A (test code = 466) UROBILINOGEN UA (BEAKER) (test code 0.2 mg/dL 0.2-1.0 = 463) RBC UA (BEAKER) (test code = 519) 183 /HPF WBC UA (BEAKER) (test code = 520) 4529 /HPF MUCUS (BEAKER) (test code = 1574) Many SOURCE(BEAKER) (test code = 8805) ..... Spray Machine Operator ID - techBASIC METABOLIC [id number] 10:37:00 Test Item Value Reference Range Interpretation Comments SODIUM (BEAKER) 136 meq/L 136-145 (test code = 381) POTASSIUM (BEAKER) 3.8 meq/L 3.5-5.1 (test code = 379) CHLORIDE (BEAKER) 104 meq/L 98-107 (test code = 382) CO2 (BEAKER) (test 20 meq/L 22-29 L code = 355) BLOOD UREA NITROGEN 14 mg/dL 7-21 (BEAKER) (test code = 354) CREATININE (BEAKER) 1.29 mg/dL 0.57-1.25 H (test code = 358) GLUCOSE RANDOM 110 mg/dL 70-105 H (BEAKER) (test code = 652) CALCIUM (BEAKER) 9.3 mg/dL 8.4-10.2 (test code = 697) EGFR (BEAKER) (test 49 mL/min/1.73 ESTIMA OLIVERIO GFR IS code = 1092) sq m NOT ACCURATE CREATININE CLEARANCE IN PREDICTING GLOMERULAR FILTRATION RATE . ESTIMATED GFR I S NOT APPLICABLE FOR DIALYSIS PATIEN TS. Spray Machine Operator ID - NTPCBC W/PLT COUNT & AUTO [id number] 10:05:00 Test Item Value Reference Range Interpretation Comments WHITE BLOOD CELL COUNT (BEAKER) 13.1 K/ L 3.5-10.5 H (test code = 775) RED BLOOD CELL COUNT (BEAKER) 4.44 M/ L 3.93-5.22 (test code = 761) HEMOGLOBIN (BEAKER) (test code = 12.4 GM/DL 11.2-15.7 410) HEMATOCRIT (BEAKER) (test code = 37.7 % 34.1-44.9 411) MEAN CORPUSCULAR VOLUME (BEAKER) 84.9 fL 79.4-94.8 (test code = 753) MEAN CORPUSCULAR HEMOGLOBIN 27.9 pg 25.6-32.2 (BEAKER) (test code = 751) MEAN CORPUSCULAR HEMOGLOBIN CONC 32.9 GM/DL 32.2-35.5 (BEAKER) (test code = 752) RED CELL DISTRIBUTION WIDTH 12.9 % 11.7-14.4 (BEAKER) (test code = 412) PLATELET COUNT (BEAKER) (test 231 K/CU MM 150-450 code = 756) MEAN PLATELET VOLUME (BEAKER) 10.6 fL 9.4-12.3 (test code = 754) NUCLEATED RED BLOOD CELLS 0 /100 WBC 0-0 (BEAKER) (test code = 413) NEUTROPHILS RELATIVE PERCENT 83 % (BEAKER) (test code = 429) LYMPHOCYTES RELATIVE PERCENT 11 % (BEAKER) (test code = 430) MONOCYTES RELATIVE PERCENT 5 % (BEAKER) (test code = 431) EOSINOPHILS RELATIVE PERCENT 0 % (BEAKER) (test code = 432) BASOPHILS RELATIVE PERCENT 0 % (BEAKER) (test code = 437) NEUTROPHILS ABSOLUTE COUNT 10.82 K/ L 1.56-6.13 H (BEAKER) (test code = 670) LYMPHOCYTES ABSOLUTE COUNT 1.45 K/ L 1.18-3.74 (BEAKER) (test code = 414) MONOCYTES ABSOLUTE COUNT (BEAKER) 0.71 K/ L 0.24-0.36 H (test code = 415) EOSINOPHILS ABSOLUTE COUNT 0.01 K/ L 0.04-0.36 L (BEAKER) (test code = 416) BASOPHILS ABSOLUTE COUNT (BEAKER) 0.04 K/ L 0.01-0.08 (test code = 417) IMMATURE GRANULOCYTES-RELATIVE 1 % 0-1 PERCENT (BEAKER) (test code = 2801) PROTHROMBIN TIME/[id number] 10:03:00 Test Item Value Reference Range Interpretation Comments PROTIME (BEAKER) (test code = 14.5 seconds 11.9-14.2 H 759) INR (BEAKER) (test code = 370) 1.2 <=5.9 Effective 04/02/2019: PT Reference Range ChangeNew: 11.9-14.2 Previous: 11.7- 14.7RECOMMENDED COUMADIN/WARFARIN INR THERAPY RANGESSTANDARD DOSE: 2.0-3.0 Includes: PROPHYLAXIS for venous thrombosis, systemic embolization; TREATMENT for venous thrombosis and/or pulmonary embolus.HIGH RISK: Target INR is2.5-3.5 for patients wiht mechanical heart valves.
[2020-12-06 21:16] LABS: Absolute Lymphocytes (CBC) 3.6 K/uL (0.7-4.9); Basophils % 1.1 % (0-1.3); Hematocrit 36.1 % (36.0-45.0); MPV 9.3 fL (7.6-11.3); RBC Red Blood Cell Count 4.33 M/uL (3.86-4.86)
[2020-12-06 21:25] LABS: Urine Blood TRACE (NEG); Urine Glucose NEGATIVE (NEG); Urine Protein 1+ (NEG); Urine Specific Gravity 1.025 (1.005-1.030)
[2020-12-06 21:28] LABS: Potassium 3.7 mmol/L (3.5-5.1)
[2020-12-06 21:39] LABS: Urine Amorphous Sediment 1+ /HPF (NONE SEEN); Urine Bacteria 20-50 /HPF (<20); Urine RBC <5 /HPF (NONE SEEN)
--- NOTE | 2020-12-06 21:45 | EDPHYS ---
Physician Documentation [facility] Name: Perla De Jesus Age: 29 yrs Sex: Female : 1990 Arrival Date: 12/06/2020 Time: 19:36 Bed 17 Private MD: ED Physician Rafa Zuniga HPI: 12/06 21:52 This 29 yrs old Female presents to ER via Ambulatory with complaints of kb Abdominal Pain. 21:52 The patient has not experienced similar symptoms in the past. The patient has not kb recently seen a physician. 21:52 The patient presents to the emergency department with abdominal pain, of the suprapubic kb area, right lower quadrant and left lower quadrant, that started today. course: care: none, Leakage of Fluid: none appreciated, Ultrasound: the patient has not had an ultrasound, Risk/complications: no obvious risks or complications are appreciated. Previous pregnancies: in previous pregnancies patient has had. Associated signs and symptoms: Pertinent positives: abdominal pain, Pertinent negatives: vaginal bleeding. Pt reports lower abd pain. STates she had a positive test last week. 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 - Social history:: Smoking status: Patient denies any tobacco usage or history of. ROS: 21:51 Constitutional: Negative for fever, chills, and weight loss, Neck: Negative for injury, kb pain, and swelling, Cardiovascular: Negative for chest pain, palpitations, and edema, Respiratory: Negative for shortness of breath, cough, wheezing, and pleuritic chest pain, Back: Negative for injury and pain, MS/Extremity: Negative for injury and deformity, Skin: Negative for injury, rash, and discoloration, Neuro: Negative for headache, weakness, numbness, tingling, and seizure. 21:51 Abdomen/GI: Positive for abdominal pain, Negative for nausea, vomiting, and diarrhea. Exam: 21:51 Constitutional: This is a well developed, well nourished patient who is awake, alert, kb and in no acute distress. Head/Face: Normocephalic, atraumatic. Chest/axilla: Normal chest wall appearance and motion. Nontender with no deformity. No lesions are appreciated. Cardiovascular: Regular rate and rhythm with a normal S1 and S2. No gallops, murmurs, or rubs. Normal PMI, no JVD. No pulse deficits. Respiratory: Lungs have equal breath sounds bilaterally, clear to auscultation and percussion. No rales, rhonchi or wheezes noted. No increased work of breathing, no retractions or nasal flaring. Back: No spinal tenderness. No costovertebral tenderness. Full range of motion. Skin: Warm, dry with normal turgor. Normal color with no rashes, no lesions, and no evidence of cellulitis. MS/ Extremity: Pulses equal, no cyanosis. Neurovascular intact. Full, normal range of motion. Neuro: Awake and alert, GCS 15, oriented to person, place, time, and situation. Cranial nerves II-XII grossly intact. Motor strength 5/5 in all extremities. Sensory grossly intact. Cerebellar exam normal. Normal gait. 21:51 Abdomen/GI: Inspection: abdomen appears normal, Bowel sounds: normal, in all quadrants, Palpation: soft, in all quadrants, mild abdominal tenderness, in the suprapubic area, right lower quadrant and left lower quadrant. Vital Signs: 20:06 BP 121 / 92; Pulse 70; Resp 16 S; Temp 97.9(TE); Pulse Ox 98% on R/A; Weight 68.04 kg ca1 (R); Height 5 ft. 4 in. (162.56 cm) (R); Pain 3/10; 20:06 Body Mass Index 25.75 (68.04 kg, 162.56 cm) ca1 MDM: 20:41 Patient medically screened. kb 21:51 Data reviewed: vital signs, nurses notes. Data interpreted: Pulse oximetry: on room air kb is 98 %. Interpretation: normal. Counseling: I had a detailed discussion with the patient and/or guardian regarding: the historical points, exam findings, and any diagnostic results supporting the discharge/admit diagnosis, lab results, radiology results, the need for outpatient follow up, an OB/Gyne specialist, to return to the emergency department if symptoms worsen or persist or if there are any questions or concerns that arise at home. 12/06 20:46 Order name: Quantitative Hcg kb 12/06 20:46 Order name: Abo/rh Typing kb 12/06 20:46 Order name: Basic Metabolic Panel kb 12/06 21:05 Order name: Urine --Ancillary (enter results) tt3 12/06 21:05 Order name: Urine Dipstick--Ancillary (enter results) tt3 12/06 21:11 Order name: Basic Metabolic Panel; Complete Time: 21:29 EDGA 12/06 21:11 Order name: CBC with Automated Diff; Complete Time: 21:17 EDGA 12/06 21:11 Order name: Urine Microscopic Only; Complete Time: 21:44 EDGA 12/06 21:40 Order name: Urine Culture [facility] 12/06 20:09 Order name: Urine Test (obtain specimen); Complete Time: 20:52 kb 12/06 20:09 Order name: Urine Dipstick-Ancillary (obtain specimen); Complete Time: 20:52 kb 12/06 20:46 Order name: IV Saline Lock; Complete Time: 20:51 kb 12/06 20:46 Order name: Labs collected and sent; Complete Time: 20:51 kb 12/06 20:46 Order name: NPO; Complete Time: 20:52 kb Administered Medications: 21:52 Drug: Macrobid 100 mg Route: PO; ll2 Disposition: 12/07 01:31 Co-signature as Attending Physician, Rafa Zuniga MD. rn Disposition: 12/06/20 21:44 Discharged to Home. Impression: Urinary tract infection, site not specified. - Condition is Stable. - Discharge Instructions: Urinary Tract Infection, Adult, [id number]. - Prescriptions for Macrobid 100 mg Oral Capsule - take 1 capsule by ORAL route every 12 hours for 10 days; 20 capsule. - Medication Reconciliation Form, Thank You Letter, Antibiotic Education, Prescription Opioid Use form. - Follow up: Emergency Department; When: As needed; Reason: Worsening of condition. Follow up: Private Physician; When: 2 - 3 days; Reason: Recheck today's complaints, Continuance of care, Re-evaluation by your physician. Signatures: Dispatcher [facility] Ana Mera, EASEMENT MAN-C EASEMENT MAN-CkRafa Siegel MD MD rn Francesca Rascon, RN RN ca1 Crissy Warner, SHAWN RN ll2 Corrections: (The following items were deleted from the chart) 12/06 21:30 21:21 CBC+H.LAB.BRZ ordered. [facility] EDGA 21:30 21:22 UA MICROSCOPIC+U.LAB.BRZ ordered. [facility] EDMS 21:39 21:20 HCG, Quantitative ordered. [facility] EDGA 21:39 21:21 Basic Metabolic Panel ordered. [facility] EDGA 21:53 21:44 12/06/2020 21:44 Discharged to Home. Impression: Urinary tract infection, site ll2 not specified. Condition is Stable. Forms are Medication Reconciliation Form, Thank You Letter, Antibiotic Education, Prescription Opioid Use. Follow up: Emergency Department; When: As needed; Reason: Worsening of condition. Follow up: Private Physician; When: 2 - 3 days; Reason: Recheck today's complaints, Continuance of care, Re-evaluation by your physician. kb
--- NOTE | 2020-12-06 21:45 | ER ---
Nurse's Notes [facility] Name: Perla De Jesus Age: 29 yrs Sex: Female : 1990 Arrival Date: 12/06/2020 Time: 19:36 Bed 17 Private MD: Diagnosis: Urinary tract infection, site not specified Presentation: 12/06 20:06 Chief complaint: Patient states: abdominal pain all over started this morning. Had ca1 positive test 3 -4 days ago. Denies N/V/D. Denies vaginal bleeding. Coronavirus screen: Client denies travel out of the [place] in the last 14 days. At this time, the client does not indicate any symptoms associated with coronavirus-19. Ebola Screen: Patient negative for fever greater than or equal to 101.5 degrees Fahrenheit, and additional compatible Ebola Virus Disease symptoms Patient denies exposure to infectious person. Patient denies travel to an Ebola-affected area in the 21 days before illness onset. No symptoms or risks identified at this time. Initial Sepsis Screen: Does the patient meet any 2 criteria? No. Patient's initial sepsis screen is negative. Does the patient have a suspected source of infection? No. Patient's initial sepsis screen is negative. Risk Assessment: Do you want to hurt yourself or someone else? Patient reports no desire to harm self or others. Onset of symptoms was December 06, 2020. 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 - Social history:: Smoking status: Patient denies any tobacco usage or history of. Screenin:50 Abuse screen: Denies threats or abuse. Nutritional screening: No deficits noted. ll2 Tuberculosis screening: No symptoms or risk factors identified. Fall Risk None identified. Assessment: 20:44 General: Appears in no apparent distress. Behavior is calm, cooperative, appropriate ll2 for age. Pain: Complains of pain in abdomen. Neuro: Level of Consciousness is awake, alert, obeys commands, Oriented to person, place, time, situation. Cardiovascular: Patient's skin is warm and dry. Respiratory: Airway is patent Respiratory effort is even, unlabored, Respiratory pattern is regular, symmetrical. GI: Abd is soft X 4 quads. : No signs and/or symptoms were reported regarding the genitourinary system. EENT: No signs and/or symptoms were reported regarding the EENT system. Derm: Skin is intact, pt has a drain from rt ureter. Musculoskeletal: Circulation, motion, and sensation intact. Range of motion: intact in all extremities. Vital Signs: 20:06 BP 121 / 92; Pulse 70; Resp 16 S; Temp 97.9(TE); Pulse Ox 98% on R/A; Weight 68.04 kg ca1 (R); Height 5 ft. 4 in. (162.56 cm) (R); Pain 3/10; 20:06 Body Mass Index 25.75 (68.04 kg, 162.56 cm) ca1 ED Course: 19:36 Patient arrived in ED. bp1 20:07 Triage completed. ca1 20:08 Arm band placed on right wrist. ca1 20:12 Ana Mera FNP-C [facility]. kb 20:12 Rafa Zuniga MD is Attending Physician. kb 20:40 Crissy Warner, SHAWN is Primary Nurse. ll2 20:50 Patient has correct armband on for positive identification. Placed in gown. Bed in low ll2 position. Call light in reach. Side rails up X 1. Pulse ox on. NIBP on. 20:50 No provider procedures requiring assistance completed. ll2 21:45 IV discontinued, intact, bleeding controlled, No redness/swelling at site. Pressure ll2 dressing applied. Administered Medications: 21:52 Drug: Macrobid 100 mg Route: PO; ll2 Outcome: 21:44 Discharge ordered by . kb 21:45 Discharged to home ambulatory. ll2 21:45 Condition: stable 21:45 Discharge instructions given to patient, Instructed on discharge instructions, follow up and referral plans. medication usage, Demonstrated understanding of instructions, follow-up care, medications, Prescriptions given X 1. 21:53 Patient left the ED. ll2 Signatures: Ana Mera FNP-C ROOFER APPLICATOR-Ckb Francesca Rascon, RN RN ca1 Crissy Warner, RN RN ll2 Sarah Jiménez bp1
[2020-12-06] MEDS ORDERED: NITROFURAN MACRO 100 MG CAP PO ONE (22:04)
[2020-12-07 01:24] VITALS: BP 121/92; TEMP 97.9; O2SAT 98
== END 2020-12-06 21:53 | disposition home or self-care (01) ==
LOC: ER 19:34
DX: N39.0 Urinary tract infection, site not specified (principal)
CPT/HCPCS: 36415; 80048; 81003; 81015; 81025; 85025; 87086; 87088; 99283